=== PATIENT | male | born 1990 | race Two or more races ===

== ENCOUNTER 2019-01-14 18:57 | Inpatient (IN) | payer SELFPAY ==
[2019-01-14] MEDS ORDERED: HYDROMORPHONE HCL INJ/PF 2 MG/ML AMPULE ONE ×2 (19:00→19:09)
[2019-01-14] MEDS ORDERED: PROPOFOL 1,000 MG/100 ML INFUS..BTL IV ONE (19:08)
[2019-01-14] MEDS ORDERED: HYDROMORPHONE HCL INJ/PF 2 MG/ML AMPULE IV PRN (19:10)
[2019-01-14] MEDS ORDERED: HYDROMORPHONE HCL INJ/PF 2 MG/ML AMPULE IV ONE (19:10)
[2019-01-14] MEDS ORDERED: PROPOFOL 1,000 MG/100 ML INFUS..BTL IV PRN (19:11)
--- NOTE | 2019-01-14 19:23 | ER Document Report ---
ED General - General Stated Complaint: POSSIBLE OVERDOSE Time Seen by Provider: 01/14/19 19:10 Cannot obtain history due to: Intubated, Altered mental status Notes: Patient is a 28-year-old male who presents by EMS intubated and paralyzed after apparently having an overdose on opiate of some kind, slumping forward and having decreased respiratory effort. EMS was called, found patient in respirations, hypoxic into the 60s. 4 mg of IV Narcan was administered, patient became combative, agitated, not redirectable. Intubated for airway protection. No history can otherwise be obtained secondary to patient's clinical status at time of presentation. TRAVEL OUTSIDE OF THE [place] IN LAST 30 DAYS: No - Related Data Allergies/Adverse Reactions: No Known Allergies Allergy (Unverified 01/14/19 21:04) Past Medical History - General Information source: Emergency Med Personnel Cannot obtain history due to: Intubated - Social History Smoking Status: Unknown if Ever Smoked Drug Abuse: Other - Opiates Lives with: Family Family History: Reviewed & Not Pertinent Review of Systems - Review of Systems -: Yes ROS unobtainable due to patient's medical condition Physical Exam - Vital signs Vitals: Resp Pulse Ox 10 L 97 01/14/19 19:00 01/14/19 19:00 Interpretation: Hypertensive, Tachycardic Notes: PHYSICAL EXAMINATION: GENERAL: Intubated, GCS 3 T HEAD: Atraumatic, normocephalic. EYES: Pupils equal round and reactive to light, extraocular movements intact, sclera anicteric, conjunctiva are normal. ENT: nares patent, oropharynx clear without exudates. Dry mucous membranes. NECK: Normal range of motion, supple without lymphadenopathy LUNGS: Tachypnea, breathing over ventilator, crackles in the bilateral upper lobes. HEART: Regular tachycardia without murmurs ABDOMEN: Soft, normoactive bowel sounds. No guarding, no rebound. No masses appreciated. EXTREMITIES: no pitting or edema. No cyanosis. NEUROLOGICAL: GCS 3 T PSYCH: Intubated sedated SKIN: Warm, Dry, normal turgor, no rashes or lesions noted. Course - Re-evaluation Re-evalutation: 01/14/19 19:21 Documentation is delayed as I been at this patient's bedside continuously since his arrival into the emergency department. In summary this patient apparently had an overdose on opiate of some kind. Family witnessed him on his phone and then slumping over onto the ground. Thereafter EMS was contacted. They found the patient to have agonal respirations, heart rates into the 70s. They gave 4 mg of naloxone IV over the course of 5 minutes with dilation of the patient's pupils, development of agitation and combativeness. The patient was subsequently intubated using rocuronium and Versed. Patient was transported to the hospital and noted to be profoundly tachycardic and hypertensive. At time of arrival to the emergency department the patient is paralyzed but obviously not sedated. He was administered 3 mg of Dilaudid over the course of 10 minutes. A propofol bolus of 40 mg followed by infusion was initiated for him. Initial chest x-ray did reveal small interstitial pulmonary edema more dominant on the right versus left consistent with Narcan induced pulmonary edema. Patient was transitioned to a ventilator. PEEP was increased to 10 and FiO2 was gradually decreased to allow for appropriate oxygenation. IV fluid hydration continued. OG and Busch catheter placed. CT of the head and cervical spine ordered given fall at onset. Patient is in critical condition, will continue to reassess at regular intervals. My goal be to try to transition the patient off of ventilator assistance and extubate as soon as possible as I believe he likely did not require intubation in the field and likely had over reversal of opiates. 01/14/19 19:48 Patient is quite difficult to maintain adequate sedation. Continue to give boluses of hydromorphone 2 mg and boluses of propofol with escalating drip of propofol. The patient is spewing forth pulmonary edema from the ET tube. 20 mg of IV furosemide been initiated for his pulmonary edema. The patient was being prepped to go over the CT scan he was transitioned to a bag for ventilation initially with Peep valve. This did result in a brief period of oxygen desaturation into the upper 70s which resolved after a Peep valve was replaced indicating the patient likely does need a high level of positive pressure support to maintain his saturations appropriately likely secondary to underlying pulmonary edema. Will continue to reassess at regular intervals. 01/14/19 20:26 Patient is now finally appropriately sedated. We are weaning down propofol. He is currently saturating 95% with a PEEP of 1060% FiO2, heart rate in the 80s and blood pressure in the low 100s currently 103 out of 54. Some of the difficulty sedating the patient initially may have been due to on going Narcan within the patient's system reducing effectiveness of the hydromorphone administered to control the patient's pain. We will continue to wean down the propofol to gradually reduce patient's sedation. Unfortunately given the patient having pulmonary edema and clearly requiring positive pressure ventilation at this point secondary to pulmonary edema I do not believe he will be able to be extubated in the emergency department. Will contact hospitalist for admission to the ICU. 01/14/19 20:39 I discussed with the hospitalist visited the patient to the ICU. Continue to monitor closely until the patient exists the emergency department. Maintains appropriate sedation at this time continuing to wean down on propofol. - Vital Signs Vital signs: Temp Pulse Resp BP Pulse Ox 14 95/57 L 95 01/14/19 20:31 01/14/19 20:31 01/14/19 20:31 - Laboratory Result Diagrams: 01/14/19 19:11 01/14/19 19:00 Laboratory results interpreted by me: 01/14/19 01/14/19 01/14/19 19:00 19:11 19:20 WBC 18.5 H Absolute Neutrophils 13.6 H Potassium 3.3 L Glucose 255 H ALT 15 L Urine Protein 100 H Urine Glucose (UA) >=500 H Salicylates < 1.0 L Acetaminophen < 10 L - Diagnostic Test Radiology reviewed: Image reviewed, Reports reviewed Radiology results interpreted by me: 01/14/19 20:39 Chest x-ray: Bilateral upper pulmonary edema worse in the right versus the left. ET tube in appropriate position. CT of the head: No acute cranial bleed or mass - EKG Interpretation by Me Additional EKG results interpreted by me: 01/14/19 20:40 Sinus tachycardia, rate 155. No ST elevations or depressions, nonspecific T wave inversions or flattening in the lateral leads. QTC is 349. Critical Care Note - Critical Care Note Total time excluding time spent on procedures (mins): 45 Comments: Critical care time spent obtaining history from patient or surrogate, discussions with consultants, development of treatment plan with patient or surrogate, evaluation of patient's response to treatment, examination of patient, ordering and performing treatments and interventions, ordering and review of laboratory studies, re-evaluation of patient's condition, ordering and review of radiographic studies and review of old charts Discharge - Discharge Clinical Impression: Narcan induced pulmonary edema, Opiate withdrawal, Acute respiratory failure with hypoxia Pulmonary edema Qualifiers: Chronicity: acute Qualified Code(s): J81.0 - Acute pulmonary edema Opiate overdose Qualifiers: Encounter type: initial encounter Injury intent: undetermined intent Qualified Code(s): T40.604A - Poisoning by unspecified narcotics, undetermined, initial encounter Condition: Critical Disposition: ADMITTED INPATIENT Admitting Provider: Jeremy (Hospitalist) Unit Admitted: ICU
[2019-01-14 19:25] LABS: ABSOLUTE BASOPHILS # (AUTO) 0.1 10^3/uL (0.0-0.2); ABSOLUTE EOSINOPHILS # (AUTO) 0.1 10^3/uL (0.0-0.6); ABSOLUTE LYMPHOCYTES (AUTO) 3.9 10^3/uL (0.5-4.7); ABSOLUTE MONOCYTES (AUTO) 0.8 10^3/uL (0.1-1.4); ABSOLUTE NEUT (AUTO) 13.6 10^3/uL (1.7-8.2); BASOPHILS % (AUTO) 0.4 % (0-2); EOSINOPHILS % (AUTO) 0.6 % (0-6); HEMATOCRIT 43.9 % (37.9-51.0); HEMOGLOBIN 14.6 g/dL (13.5-17.0); LYMPHOCYTES % (AUTO) 21.2 % (13-45); MEAN CORPUSCULAR HEMOGLOBIN 30.6 pg (27.0-33.4); MEAN CORPUSCULAR HGB CONC 33.1 g/dL (32.0-36.0); MEAN CORPUSCULAR VOLUME 92 fl (80-97); MONOCYTES % (AUTO) 4.4 % (3-13); PLATELET COUNT 287 10^3/uL (150-450); RED BLOOD COUNT 4.75 10^6/uL (4.35-5.55); RED CELL DISTRIBUTION WIDTH 13.2 % (11.5-14.0); SEGMENTED NEUTROPHILS % (AUTO) 73.4 % (42-78); TOTAL CELLS COUNTED % (AUTO) 100 %; WHITE BLOOD COUNT 18.5 10^3/uL (4.0-10.5)
--- NOTE | 2019-01-14 19:37 | RADIOLOGY REPORT (SQ) ---
EXAM DESCRIPTION: CHEST SINGLE VIEW COMPLETED DATE/TIME: 01/14/2019 7:19 pm REASON FOR STUDY: post-intubation COMPARISON: None. EXAM PARAMETERS: NUMBER OF VIEWS: One view TECHNIQUE: Single supine frontal radiograph of the chest. RADIATION DOSE: N/A LIMITATIONS: None. FINDINGS: TEMPORARY SUPPORT DEVICES:ETT in expected location. The enteric tube has the tip at the d istal esophagus. LUNGS AND PLEURA: There are patchy airspace opacities at the bilateral upper lobes. No sizable pleur al effusion or pneumothorax on this supine view. MEDIASTINUM AND HILAR STRUCTURES: No masses. Contour normal. HEART AND VASCULAR STRUCTURES: The heart is mildly enlarged. No overt vascular congestion. BONES: No acute findings. IMPRESSION: 1. Mild cardiomegaly. Patchy airspace opacities at the bilateral upper lobes, may repre sent asymmetric pulmonary edema, pneumonia or hemorrhage. 2. Enteric tube with the tip at the distal esophagus, advancement by approximately 10 cm recommended . RECOMMENDATIONS: Advancement of the enteric tube. TECHNICAL DOCUMENTATION: JOB ID: [id number] 2010 [employer]- All Rights Reserved Reading location - IP/workstation name: [email or web address]
[2019-01-14] MEDS ORDERED: FUROSEMIDE INJ/PF 20 MG/2 ML SDV IV ONE (19:48)
[2019-01-14 19:51] LABS: ALANINE AMINOTRANSFERASE 15 U/L (21-72); ALBUMIN 4.1 g/dL (3.5-5.0); ALKALINE PHOSPHATASE 93 U/L (38-126); ANION GAP 15 (5-19); ASPARTATE AMINO TRANSFERASE 33 U/L (17-59); BILIRUBIN,DIRECT 0.2 mg/dL (0.0-0.4); BILIRUBIN,TOTAL 0.5 mg/dL (0.2-1.3); BLOOD UREA NITROGEN 10 mg/dL (7-20); CALCIUM 8.4 mg/dL (8.4-10.2); CARBON DIOXIDE 23 mmol/L (22-30); CHLORIDE 103 mmol/L (98-107); GLUCOSE 255 mg/dL (75-110); POTASSIUM 3.3 mmol/L (3.6-5.0); SODIUM 140.7 mmol/L (137-145); TOTAL PROTEIN 7.2 g/dL (6.3-8.2)
[2019-01-14 19:51] LABS: APPEARANCE,URINE SLIGHTLY-CLOUDY; BILIRUBIN,URINE NEGATIVE (NEGATIVE); COLOR,URINE YELLOW; GLUCOSE, URINE >=500 mg/dL (NEGATIVE); KETONES,URINE NEGATIVE (NEGATIVE); LEUKOCYTE ESTERASE,URINE NEGATIVE (NEGATIVE); NITRITE,URINE NEGATIVE (NEGATIVE); PROTEIN,URINE 100 mg/dL (NEGATIVE); URINE SPECIFIC GRAVITY 1.014; UROBILINOGEN,URINE NEGATIVE mg/dL (<2.0)
[2019-01-14 19:52] LABS: ACETAMINOPHEN < 10 ug/mL (10-30); SALICYLATE < 1.0 mg/dL (2.0-20.0)
[2019-01-14 20:01] LABS: URINE AMPHETAMINES SCREEN NEGATIVE; URINE BARBITURATES SCREEN NEGATIVE; URINE BENZODIAZEPINES SCREEN UNCONFIRMED POSITIVE; URINE COCAINE SCREEN NEGATIVE; URINE MARIJUANA (THC) SCREEN UNCONFIRMED POSITIVE; URINE METHADONE SCREEN NEGATIVE; URINE PHENCYCLIDINE SCREEN NEGATIVE
--- NOTE | 2019-01-14 20:27 | RADIOLOGY REPORT (SQ) ---
CT BRAIN AND CERVICAL SPINE HISTORY: Trauma. COMPARISON: None. TECHNIQUE: CT scan of the brain and cervical spine without IV contrast. This exam was performed according to our departmental dose-optimization program, which includes automated exposure control, adjustment of the mA and/or kV according to patient size and/or use of iterative reconstruction technique. FINDINGS: BRAIN: The ventricles, cisterns, and sulci are unremarkable. No focal white matter lesions are seen. No evidence of acute infarction, intracranial hemorrhage, extra-axial fluid collection, or midline shift. There is sinus disease involving the ethmoid and left maxillary sinus. No depressed skull fracture. CERVICAL SPINE: No acute cervical fracture or prevertebral soft tissue swelling. There is straightening of the normal cervical lordosis, which may be due to cervical collar, muscle spasm, or patient positioning. The facet joints and disc spaces are preserved. No advanced canal stenosis is identified. Partially visualized consolidation at lung apices. IMPRESSION: 1. No acute intracranial hemorrhage. 2. No acute fracture or subluxation of the cervical spine.
[2019-01-14] MEDS ORDERED: ACETAMINOPHEN 325 MG TABLET PO PRN (20:40)
[2019-01-14] MEDS ORDERED: IPRATROPIUM/ALBUTEROL 0.5-2.5 MG/3 ML AMPUL NEB PRN (20:40)
[2019-01-14] MEDS ORDERED: NORMAL SALINE 1000 ML 1,000 ML IV ONE (20:42)
[2019-01-14] MEDS: POTASSI CL 20 MEQ/50 ML RIDER 20 MEQ/50 ML RTUPB IV SCH (21:26)
[2019-01-14] MEDS: FENTANYL CITRATE INJ/PF 100 MCG/2 ML AMPUL IV PRN (22:09)
[2019-01-14] MEDS: PROPOFOL 1,000 MG/100 ML INFUS..BTL IV PRN (22:11)
[2019-01-14 22:32] LABS: ARTERIAL BLOOD BASE EXCESS -3.6 mmol/L; ARTERIAL BLOOD H2CO3 1.36 mmol/L (1.05-1.35); ARTERIAL BLOOD HCO3 22.7 mmol/L (20-24); ARTERIAL BLOOD O2 SATURATION 92.8 % (94-98); ARTERIAL BLOOD PCO2 45.1 mmHg (35-45); ARTERIAL BLOOD PH 7.32 (7.35-7.45); ARTERIAL BLOOD PO2 70.5 mmHg (80-100)
[2019-01-14 22:33] LABS: ARTERIAL BLOOD FIO2 40%
--- NOTE | 2019-01-14 23:23 | EKG REPORT ---
SEVERITY:- ABNORMAL ECG - ECTOPIC ATRIAL TACHYCARDIA PROBABLE LEFT ATRIAL ABNORMALITY NONSPECIFIC INTRAVENTRICULAR CONDUCTION DELAY INFERIOR Q WAVES, PROBABLY NORMAL VARIATION LATERAL Q WAVES, PROBABLY NORMAL VARIATION ST DEPRESSION, CONSIDER ISCHEMIA, INF LEADS : Confirmed by: Francisca Turner MD 14-Jan-2019 23:22:39
--- NOTE | 2019-01-14 23:27 | RADIOLOGY REPORT (SQ) ---
EXAM DESCRIPTION: XR CHEST 1 VIEW COMPLETED DATE/TME: 01/14/2019 00:00 CLINICAL HISTORY: 28 years, Male, decreased o2 sat COMPARISON: None NUMBER OF VIEWS: One TECHNIQUE: Single view, AP portable chest was obtained. LIMITATIONS: None. FINDINGS: Unremarkable cardiac and mediastinal silhouette. Heart size is top normal. Diffuse airspace opacification is identified present in the bilateral upper lobe and perihilar distribution raising the possibility of edema, ARDS and multifocal infectious process. No pneumothorax or large pleural effusions. Trace pleural effusions cannot be excluded. Endotracheal tube terminates approximately 4 cm above the level of the bryn. Enteric tube terminates at the level of the gastroesophageal junction. The visualized bones are within normal limits. IMPRESSION: 1. Diffuse airspace opacification is identified present in the bilateral upper lobe and perihilar distribution raising the possibility of edema, ARDS and multifocal infectious process. 2. Enteric tube terminates at the level of the gastroesophageal junction. Repositioning is recommended. copyright 2010 [employer]- All Rights Reserved
[2019-01-14] MEDS ORDERED: PHARMACY COMMUNICATION ORDER MC NR (23:45)
[2019-01-15] MEDS: IPRATROPIUM/ALBUTEROL 0.5-2.5 MG/3 ML AMPUL NEB SCH ×4 (00:16→23:54)
--- NOTE | 2019-01-15 00:37 | RADIOLOGY REPORT (SQ) ---
CLINICAL HISTORY: Check Placement of NG Tube COMPARISON: None. TECHNIQUE: XR ABDOMEN 1 VIEW (KUB) 01/14/2019 11:49 PM CDT FINDINGS: Bowel gas pattern is nonspecific. There are no abnormal radiopaque foreign bodies or abnormal calcifications. Osseous structures are grossly unremarkable. NG tube tip is in the stomach. IMPRESSION: NG tube tip in the stomach.
--- NOTE | 2019-01-15 00:38 | RADIOLOGY REPORT (SQ) ---
EXAM DESCRIPTION: XR CHEST 1 VIEW COMPLETED DATE/TME: 01/14/2019 23:48 CLINICAL HISTORY: 28 years, Male, ET position, ARDS COMPARISON: X-ray chest 01/14/2019 NUMBER OF VIEWS: TECHNIQUE: LIMITATIONS: None. FINDINGS: The tip of the endotracheal tube is in satisfactory position, just above the level of the clavicles. The right upper lobe infiltrate appears somewhat worse, as compared with the prior study. The left upper lobe infiltrate appears somewhat better, as compared with the prior study. There is hazy opacity projecting over the right lung base, possibly a pleural effusion. The nasogastric tube has been advanced at least into the stomach. The tip of the tube was not included on this chest x-ray. IMPRESSION: The ET tube is in satisfactory position. The right upper lobe infiltrate appears worse and the left upper infiltrate appears somewhat better, as compared with the prior chest x-ray. Possible right pleural effusion. copyright 2010 [employer]- All Rights Reserved
[2019-01-15] MEDS: PANTOPRAZOLE SODIUM 40 MG VIAL IV SCH ×3 (00:56→21:09)
[2019-01-15] MEDS: PROPOFOL 1,000 MG/100 ML INFUS..BTL IV PRN ×7 (00:56→21:58)
[2019-01-15] MEDS: HEPARIN SOD (PORCINE) 5,000 UNIT/ML 1 ML SYRINGE SUBCUT SCH ×4 (00:56→21:10)
[2019-01-15] MEDS: ACETAMINOPHEN 325 MG TABLET NG PRN ×2 (00:57→20:26)
[2019-01-15] MEDS: POTASSI CL 20 MEQ/50 ML RIDER 20 MEQ/50 ML RTUPB IV SCH (00:58)
[2019-01-15 01:10] LABS: ARTERIAL BLOOD H2CO3 1.47 mmol/L (1.05-1.35); ARTERIAL BLOOD HCO3 25.4 mmol/L (20-24); ARTERIAL BLOOD O2 SATURATION 99.8 % (94-98); ARTERIAL BLOOD PCO2 48.7 mmHg (35-45); ARTERIAL BLOOD PH 7.34 (7.35-7.45); ARTERIAL BLOOD TOTAL CO2 26.9 mmol/L (23-27)
[2019-01-15 01:11] LABS: ARTERIAL BLOOD FIO2 100%
[2019-01-15 03:40] LABS: ABSOLUTE LYMPHOCYTES (AUTO) 1.4 10^3/uL (0.5-4.7); ABSOLUTE MONOCYTES (AUTO) 0.7 10^3/uL (0.1-1.4); ABSOLUTE NEUT (AUTO) 10.3 10^3/uL (1.7-8.2); BASOPHILS % (AUTO) 0.3 % (0-2); EOSINOPHILS % (AUTO) 0.1 % (0-6); HEMOGLOBIN 13.4 g/dL (13.5-17.0); LYMPHOCYTES % (AUTO) 11.2 % (13-45); MEAN CORPUSCULAR HEMOGLOBIN 30.3 pg (27.0-33.4); MEAN CORPUSCULAR HGB CONC 33.4 g/dL (32.0-36.0); MEAN CORPUSCULAR VOLUME 91 fl (80-97); MONOCYTES % (AUTO) 5.4 % (3-13); PLATELET COUNT 222 10^3/uL (150-450); RED BLOOD COUNT 4.41 10^6/uL (4.35-5.55); RED CELL DISTRIBUTION WIDTH 13.2 % (11.5-14.0); TOTAL CELLS COUNTED % (AUTO) 100 %; WHITE BLOOD COUNT 12.4 10^3/uL (4.0-10.5)
[2019-01-15] MEDS: NORMAL SALINE 1000 ML 1,000 ML IV PRN ×2 (04:00→08:33)
[2019-01-15 04:01] LABS: ANION GAP 8 (5-19); BLOOD UREA NITROGEN 10 mg/dL (7-20); CALCIUM 8.2 mg/dL (8.4-10.2); CARBON DIOXIDE 25 mmol/L (22-30); CHLORIDE 107 mmol/L (98-107); GLUCOSE 87 mg/dL (75-110); SODIUM 140.2 mmol/L (137-145)
--- NOTE | 2019-01-15 05:18 | PDOC H&P ---
History of Present Illness Admission Date/PCP: 01/14/19 20:59 Patient complains of: Altered mental status History of Present Illness: NESHA BONILLA is a 28 year old male whose history is obtained by the record as he is intubated and sedated. Patient presents via EMS intubated and paralyzed after apparently having an overdose on opiates of some kind. Found slumping forward with agonal respirations and hypoxia in the 60s. He received 4 mg of IV Narcan becoming combative, agitated requiring intubation for airway protection. In the emergency room he is found to have leukocytosis, hypokalemia, pulmonary edema by imaging, hypoxic and hypercapnic respiratory failure. He is referred to the hospitalist for admission. Urine drug screen positive for benzod iazepine, opiates and cannabis. Past Medical History Medical History: None Past Surgical History Past Surgical History: Reports: None Social History Information Source: Emergency Med Personnel, [facility] Records Lives with: Family Smoking Status: Unknown if Ever Smoked Drugs: Marijuana - Advance Directive Resuscitation Status: Full Code Family History Family History: Other - Unobtainable Parental Family History Reviewed: No - Unobtainable Children Family History Reviewed: No - Unobtainable Sibling(s) Family History Reviewed.: No - Unobtainable Medication/Allergy Allergies/Adverse Reactions: No Known Allergies Allergy (Unverified 01/14/19 21:04) Review of Systems ROS unobtainable: Due to endotracheal tube - Intubated and sedated, Due to mental status - Intubated and sedated Physical Exam Vital Signs: Temp Pulse Resp BP Pulse Ox 88 16 120/64 100 01/15/19 00:00 01/15/19 00:00 01/14/19 22:32 01/15/19 00:00 Intake & Output 01/13/19 01/14/19 01/15/19 11:59 11:59 11:59 Intake Total 1253 Output Total 610 Balance 643 Weight 76 kg General appearance: PRESENT: severe distress, well-developed, well-nourished. ABSENT: cooperative Head exam: PRESENT: atraumatic, normocephalic Eye exam: PRESENT: conjunctiva pink, EOMI, PERRLA. ABSENT: scleral icterus Ear exam: PRESENT: normal external ear exam Mouth exam: PRESENT: moist, tongue midline Neck exam: ABSENT: carotid bruit, JVD, lymphadenopathy, thyromegaly Respiratory exam: PRESENT: crackles, decreased breath sounds, prolonged expiratory phas, symmetrical, wheezes. ABSENT: rales, rhonchi Cardiovascular exam: PRESENT: tachycardia. ABSENT: diastolic murmur, rubs, systolic murmur Pulses: PRESENT: normal dorsalis pedis pul Vascular exam: PRESENT: normal capillary refill GI/Abdominal exam: PRESENT: normal bowel sounds, soft. ABSENT: distended, guarding, mass, organolmegaly, rebound, tenderness Rectal exam: PRESENT: deferred Extremities exam: PRESENT: full ROM. ABSENT: calf tenderness, clubbing, pedal edema Neurological exam: PRESENT: altered Skin exam: PRESENT: dry, intact, warm. ABSENT: cyanosis, rash Results Laboratory Results: 01/15/19 03:25 01/15/19 03:25 01/14/19 01/14/19 01/14/19 19:00 19:11 19:20 WBC 18.5 H RBC 4.75 Hgb 14.6 Hct 43.9 MCV 92 MCH 30.6 MCHC 33.1 RDW 13.2 Plt Count 287 Seg Neutrophils % 73.4 Lymphocytes % 21.2 Monocytes % 4.4 Eosinophils % 0.6 Basophils % 0.4 Absolute Neutrophils 13.6 H Absolute Lymphocytes 3.9 Absolute Monocytes 0.8 Absolute Eosinophils 0.1 Absolute Basophils 0.1 Carbonic Acid HCO3/H2CO3 Ratio ABG pH ABG pCO2 ABG pO2 ABG HCO3 ABG O2 Saturation ABG Base Excess FiO2 Sodium 140.7 Potassium 3.3 L Chloride 103 Carbon Dioxide 23 Anion Gap 15 BUN 10 Creatinine 0.82 Est GFR ( Amer) > 60 Est GFR (Non-Af Amer) > 60 Glucose 255 H Calcium 8.4 Magnesium Total Bilirubin 0.5 AST 33 ALT 15 L Alkaline Phosphatase 93 Total Protein 7.2 Albumin 4.1 Urine Color YELLOW Urine Appearance SLIGHTLY-CLOUDY Urine pH 5.0 Ur Specific [place] 1.014 Urine Protein 100 H Urine Glucose (UA) >=500 H Urine Ketones NEGATIVE Urine Blood NEGATIVE Urine Nitrite NEGATIVE Ur Leukocyte Esterase NEGATIVE Urine WBC (Auto) 2 Urine RBC (Auto) 1 01/14/19 01/14/19 01/15/19 19:20 22:20 00:45 WBC RBC Hgb Hct MCV MCH MCHC RDW Plt Count Seg Neutrophils % Lymphocytes % Monocytes % Eosinophils % Basophils % Absolute Neutrophils Absolute Lymphocytes Absolute Monocytes Absolute Eosinophils Absolute Basophils Carbonic Acid 1.36 H 1.47 H HCO3/H2CO3 Ratio 16:1 17:1 ABG pH 7.32 L 7.34 L ABG pCO2 45.1 H 48.7 H ABG pO2 70.5 L 441.0 H ABG HCO3 22.7 25.4 H ABG O2 Saturation 92.8 L 99.8 H ABG Base Excess -3.6 -1.0 FiO2 40% 100% Sodium Potassium Chloride Carbon Dioxide Anion Gap BUN Creatinine Est GFR ( Amer) Est GFR (Non-Af Amer) Glucose Calcium Magnesium 1.9 Total Bilirubin AST ALT Alkaline Phosphatase Total Protein Albumin Urine Color Urine Appearance Urine pH Ur Specific [place] Urine Protein Urine Glucose (UA) Urine Ketones Urine Blood Urine Nitrite Ur Leukocyte Esterase Urine WBC (Auto) Urine RBC (Auto) 01/15/19 01/15/19 03:25 03:25 WBC 12.4 H RBC 4.41 Hgb 13.4 L Hct 40.0 MCV 91 MCH 30.3 MCHC 33.4 RDW 13.2 Plt Count 222 Seg Neutrophils % 83.0 H Lymphocytes % 11.2 L Monocytes % 5.4 Eosinophils % 0.1 Basophils % 0.3 Absolute Neutrophils 10.3 H Absolute Lymphocytes 1.4 Absolute Monocytes 0.7 Absolute Eosinophils 0.0 Absolute Basophils 0.0 Carbonic Acid HCO3/H2CO3 Ratio ABG pH ABG pCO2 ABG pO2 ABG HCO3 ABG O2 Saturation ABG Base Excess FiO2 Sodium 140.2 Potassium 4.0 Chloride 107 Carbon Dioxide 25 Anion Gap 8 BUN 10 Creatinine 0.77 Est GFR ( Amer) > 60 Est GFR (Non-Af Amer) > 60 Glucose 87 Calcium 8.2 L Magnesium Total Bilirubin AST ALT Alkaline Phosphatase Total Protein Albumin Urine Color Urine Appearance Urine pH Ur Specific [place] Urine Protein Urine Glucose (UA) Urine Ketones Urine Blood Urine Nitrite Ur Leukocyte Esterase Urine WBC (Auto) Urine RBC (Auto) Impressions: Cervical Spine CT 01/14/19 19:11 IMPRESSION: 1. No acute intracranial hemorrhage. 2. No acute fracture or subluxation of the cervical spine. Head CT 01/14/19 19:11 IMPRESSION: 1. No acute intracranial hemorrhage. 2. No acute fracture or subluxation of the cervical spine. Chest X-Ray 01/14/19 23:48 IMPRESSION: The ET tube is in satisfactory position. The right upper lobe infiltrate appears worse and the left upper infiltrate appears somewhat better, as compared with the prior chest x-ray. Possible right pleural effusion. copyright 2011 [employer]- All Rights Reserved KUB X-Ray 01/14/19 23:49 IMPRESSION: NG tube tip in the stomach. Assessment and Plan - Diagnosis (1) Acute respiratory failure with hypoxia Is this a current diagnosis for this admission?: Yes Plan: Most likely secondary to opiate overdose. Continue ventilator support follow-up chest x-ray and ABG. (2) Pulmonary edema Qualifiers: Chronicity: acute Qualified Code(s): J81.0 - Acute pulmonary edema Is this a current diagnosis for this admission?: Yes Plan: Likely secondary to opiate reversal. Continue ventilator support patient received 1 dose of Lasix, follow-up imaging (3) Opiate overdose Qualifiers: Encounter type: initial encounter Injury intent: undetermined intent Qualified Code(s): T40.604A - Poisoning by unspecified narcotics, undetermined, initial encounter Is this a current diagnosis for this admission?: Yes Plan: Unclear route, no murmur. Mental health consult when appropriate (4) Fever Is this a current diagnosis for this admission?: Yes Plan: No history suggesting aspiration, follow-up blood and urine culture - Time Time Spent with patient: 35 or more minutes
[2019-01-15 06:36] LABS: ARTERIAL BLOOD BASE EXCESS -0.1 mmol/L; ARTERIAL BLOOD FIO2 30%; ARTERIAL BLOOD H2CO3 1.18 mmol/L (1.05-1.35); ARTERIAL BLOOD HCO3 24.3 mmol/L (20-24); ARTERIAL BLOOD O2 SATURATION 97.6 % (94-98); ARTERIAL BLOOD PCO2 39.1 mmHg (35-45); ARTERIAL BLOOD PH 7.41 (7.35-7.45); ARTERIAL BLOOD PO2 99.9 mmHg (80-100); ARTERIAL BLOOD TOTAL CO2 25.5 mmol/L (23-27)
[2019-01-15] MEDS: FENTANYL CITRATE INJ/PF 100 MCG/2 ML AMPUL IV PRN ×3 (08:14→20:15)
--- NOTE | 2019-01-15 09:41 | EKG REPORT ---
SEVERITY:- NORMAL ECG - SINUS RHYTHM ST ELEV, PROBABLE NORMAL EARLY REPOL PATTERN : Confirmed by: Francisca Turner MD 15-Jan-2019 09:40:34
--- NOTE | 2019-01-15 12:18 | PDOC PROGRESS REPORT ---
Subjective Progress Note for:: 01/15/19 Subjective:: Patient is vented and sedated. Staff reports that when sedation is lightened patient gets quite agitated. Reason For Visit: AMS,PULMONARY EDEMA,OPIATE OD Physical Exam Vital Signs: Temp Pulse Resp BP Pulse Ox 98.8 F 66 16 115/62 100 01/15/19 10:00 01/15/19 10:00 01/15/19 10:00 01/15/19 10:00 01/15/19 11:41 Intake & Output 01/14/19 01/15/19 01/16/19 06:59 06:59 06:59 Intake Total 1253 1092 Output Total 970 680 Balance 283 412 Weight 76.7 kg General appearance: PRESENT: no acute distress, well-developed, other - Vented and sedated. ABSENT: obese Head exam: PRESENT: atraumatic, normocephalic Eye exam: PRESENT: conjunctiva pink. ABSENT: scleral icterus Mouth exam: PRESENT: other - Endotracheal tube in place Neck exam: ABSENT: carotid bruit, JVD, lymphadenopathy Respiratory exam: PRESENT: clear to auscultation wm, symmetrical, unlabored - Breathing at set rate. ABSENT: accessory muscle use, rales, rhonchi, tachypnea, wheezes Cardiovascular exam: PRESENT: RRR, +S1, +S2. ABSENT: diastolic murmur, systolic murmur GI/Abdominal exam: PRESENT: normal bowel sounds, soft. ABSENT: distended, tenderness Rectal exam: PRESENT: deferred Gentrourinary exam: PRESENT: indwelling catheter Extremities exam: ABSENT: joint swelling, pedal edema Musculoskeletal exam: PRESENT: normal inspection Neurological exam: PRESENT: other - Sedated Psychiatric exam: PRESENT: other - Sedated Focused psych exam: PRESENT: other - Sedated Results Laboratory Results: 01/15/19 03:25 01/15/19 03:25 01/14/19 01/14/19 01/14/19 19:00 19:11 19:20 WBC 18.5 H RBC 4.75 Hgb 14.6 Hct 43.9 MCV 92 MCH 30.6 MCHC 33.1 RDW 13.2 Plt Count 287 Seg Neutrophils % 73.4 Lymphocytes % 21.2 Monocytes % 4.4 Eosinophils % 0.6 Basophils % 0.4 Absolute Neutrophils 13.6 H Absolute Lymphocytes 3.9 Absolute Monocytes 0.8 Absolute Eosinophils 0.1 Absolute Basophils 0.1 Carbonic Acid HCO3/H2CO3 Ratio ABG pH ABG pCO2 ABG pO2 ABG HCO3 ABG O2 Saturation ABG Base Excess FiO2 Sodium 140.7 Potassium 3.3 L Chloride 103 Carbon Dioxide 23 Anion Gap 15 BUN 10 Creatinine 0.82 Est GFR ( Amer) > 60 Est GFR (Non-Af Amer) > 60 Glucose 255 H Calcium 8.4 Magnesium Total Bilirubin 0.5 AST 33 ALT 15 L Alkaline Phosphatase 93 Total Protein 7.2 Albumin 4.1 Urine Color YELLOW Urine Appearance SLIGHTLY-CLOUDY Urine pH 5.0 Ur Specific [place] 1.014 Urine Protein 100 H Urine Glucose (UA) >=500 H Urine Ketones NEGATIVE Urine Blood NEGATIVE Urine Nitrite NEGATIVE Ur Leukocyte Esterase NEGATIVE Urine WBC (Auto) 2 Urine RBC (Auto) 1 01/14/19 01/14/19 01/15/19 19:20 22:20 00:45 WBC RBC Hgb Hct MCV MCH MCHC RDW Plt Count Seg Neutrophils % Lymphocytes % Monocytes % Eosinophils % Basophils % Absolute Neutrophils Absolute Lymphocytes Absolute Monocytes Absolute Eosinophils Absolute Basophils Carbonic Acid 1.36 H 1.47 H HCO3/H2CO3 Ratio 16:1 17:1 ABG pH 7.32 L 7.34 L ABG pCO2 45.1 H 48.7 H ABG pO2 70.5 L 441.0 H ABG HCO3 22.7 25.4 H ABG O2 Saturation 92.8 L 99.8 H ABG Base Excess -3.6 -1.0 FiO2 40% 100% Sodium Potassium Chloride Carbon Dioxide Anion Gap BUN Creatinine Est GFR ( Amer) Est GFR (Non-Af Amer) Glucose Calcium Magnesium 1.9 Total Bilirubin AST ALT Alkaline Phosphatase Total Protein Albumin Urine Color Urine Appearance Urine pH Ur Specific [place] Urine Protein Urine Glucose (UA) Urine Ketones Urine Blood Urine Nitrite Ur Leukocyte Esterase Urine WBC (Auto) Urine RBC (Auto) 01/15/19 01/15/19 01/15/19 03:25 03:25 06:30 WBC 12.4 H RBC 4.41 Hgb 13.4 L Hct 40.0 MCV 91 MCH 30.3 MCHC 33.4 RDW 13.2 Plt Count 222 Seg Neutrophils % 83.0 H Lymphocytes % 11.2 L Monocytes % 5.4 Eosinophils % 0.1 Basophils % 0.3 Absolute Neutrophils 10.3 H Absolute Lymphocytes 1.4 Absolute Monocytes 0.7 Absolute Eosinophils 0.0 Absolute Basophils 0.0 Carbonic Acid 1.18 HCO3/H2CO3 Ratio 20:1 ABG pH 7.41 ABG pCO2 39.1 ABG pO2 99.9 ABG HCO3 24.3 H ABG O2 Saturation 97.6 ABG Base Excess -0.1 FiO2 30% Sodium 140.2 Potassium 4.0 Chloride 107 Carbon Dioxide 25 Anion Gap 8 BUN 10 Creatinine 0.77 Est GFR ( Amer) > 60 Est GFR (Non-Af Amer) > 60 Glucose 87 Calcium 8.2 L Magnesium Total Bilirubin AST ALT Alkaline Phosphatase Total Protein Albumin Urine Color Urine Appearance Urine pH Ur Specific [place] Urine Protein Urine Glucose (UA) Urine Ketones Urine Blood Urine Nitrite Ur Leukocyte Esterase Urine WBC (Auto) Urine RBC (Auto) Impressions: Cervical Spine CT 01/14/19 19:11 IMPRESSION: 1. No acute intracranial hemorrhage. 2. No acute fracture or subluxation of the cervical spine. Head CT 01/14/19 19:11 IMPRESSION: 1. No acute intracranial hemorrhage. 2. No acute fracture or subluxation of the cervical spine. Chest X-Ray 01/14/19 23:48 IMPRESSION: The ET tube is in satisfactory position. The right upper lobe infiltrate appears worse and the left upper infiltrate appears somewhat better, as compared with the prior chest x-ray. Possible right pleural effusion. copyright 2010 [employer]- All Rights Reserved KUB X-Ray 01/14/19 23:49 IMPRESSION: NG tube tip in the stomach. Assessment and Plan - Diagnosis (1) Acute respiratory failure with hypoxia Is this a current diagnosis for this admission?: Yes Plan: Most likely secondary to opiate overdose. Continue ventilator support follow-up chest x-ray and ABG. 01/15/2019-currently sedated. Has a low threshold for agitation. X-ray reviewed and large right upper lobe infiltrate. White blood cell count is improved but still elevated. Urine culture and sputum culture pending. I will start a ntibiotic therapy for possible aspiration as the patient was found down. Repeat chest x-ray tomorrow as well as repeat labs. (2) Fever Is this a current diagnosis for this admission?: Yes Plan: No history suggesting aspiration, follow-up blood and urine culture 01/15/2019-urine and sputum cultures pending. Blood cultures ordered. Will initiate Unasyn for potential aspiration pneumonia in otherwise healthy patient with intact immune system. (3) Opiate overdose Qualifiers: Encounter type: initial encounter Injury intent: undetermined intent Qualified Code(s): T40.604A - Poisoning by unspecified narcotics, undetermined, initial encounter Is this a current diagnosis for this admission?: Yes Plan: Unclear route, no murmur. Mental health consult when appropriate 01/15/2019-the patient received Narcan in the emergency department. We will continue to monitor for withdrawal. Currently sedated. (4) Pulmonary edema Qualifiers: Chronicity: acute Qualified Code(s): J81.0 - Acute pulmonary edema Is this a current diagnosis for this admission?: Yes Plan: Likely secondary to opiate reversal. Continue ventilator support patient received 1 dose of Lasix, follow-up imaging 01/15/2019-as noted above. Will monitor intake and output. I will decrease the IV fluids to maintenance levels. (5) Pneumonia Qualifiers: Pneumonia type: aspiration pneumonia Laterality: left Is this a current diagnosis for this admission?: Yes Plan: 01/15/2019-patient with right upper lobe infiltrate. Slightly worse. White blood cell count is improved however the patient was found down is at high risk of aspiration. Will start antibiotic therapy and monitor closely. Repeat labs and chest x-ray tomorrow. - Time Time Spent with patient: 25-34 minutes Anticipated discharge: Home
[2019-01-15] MEDS: AMPICILLIN SODIUM/SULBACTAM NA 3 GM in NORMAL SALINE 100 ML IV SCH (17:44)
[2019-01-15] MEDS ORDERED: AMPICILLIN SODIUM/SULBACTAM NA 1.5 GM in NORMAL SALINE 50 ML IV SCH (18:00)
[2019-01-16] MEDS: LORAZEPAM INJ 2 MG/1 ML VIAL IV PRN ×5 (01:14→17:54)
[2019-01-16] MEDS: AMPICILLIN SODIUM/SULBACTAM NA 3 GM in NORMAL SALINE 100 ML IV SCH ×2 (01:14→05:21)
[2019-01-16] MEDS: PROPOFOL 1,000 MG/100 ML INFUS..BTL IV PRN ×7 (01:16→22:52)
[2019-01-16] MEDS: FENTANYL CITRATE INJ/PF 100 MCG/2 ML AMPUL IV PRN ×6 (01:41→23:07)
[2019-01-16] MEDS: ACETAMINOPHEN 325 MG TABLET NG PRN ×3 (02:12→10:34)
[2019-01-16] MEDS: HEPARIN SOD (PORCINE) 5,000 UNIT/ML 1 ML SYRINGE SUBCUT SCH ×3 (05:19→21:31)
[2019-01-16 05:39] LABS: ABSOLUTE EOSINOPHILS # (AUTO) 0.1 10^3/uL (0.0-0.6); ABSOLUTE LYMPHOCYTES (AUTO) 1.7 10^3/uL (0.5-4.7); ABSOLUTE MONOCYTES (AUTO) 0.8 10^3/uL (0.1-1.4); BASOPHILS % (AUTO) 0.3 % (0-2); EOSINOPHILS % (AUTO) 1.4 % (0-6); HEMATOCRIT 40.8 % (37.9-51.0); HEMOGLOBIN 13.7 g/dL (13.5-17.0); LYMPHOCYTES % (AUTO) 16.2 % (13-45); MEAN CORPUSCULAR HEMOGLOBIN 31.1 pg (27.0-33.4); MEAN CORPUSCULAR HGB CONC 33.5 g/dL (32.0-36.0); MEAN CORPUSCULAR VOLUME 93 fl (80-97); MONOCYTES % (AUTO) 7.7 % (3-13); PLATELET COUNT 197 10^3/uL (150-450); RED BLOOD COUNT 4.39 10^6/uL (4.35-5.55); RED CELL DISTRIBUTION WIDTH 13.8 % (11.5-14.0); SEGMENTED NEUTROPHILS % (AUTO) 74.4 % (42-78); TOTAL CELLS COUNTED % (AUTO) 100 %; WHITE BLOOD COUNT 10.8 10^3/uL (4.0-10.5)
[2019-01-16 05:53] LABS: ARTERIAL BLOOD BASE EXCESS 0.5 mmol/L; ARTERIAL BLOOD H2CO3 1.23 mmol/L (1.05-1.35); ARTERIAL BLOOD HCO3 25.2 mmol/L (20-24); ARTERIAL BLOOD O2 SATURATION 95.8 % (94-98); ARTERIAL BLOOD PCO2 40.9 mmHg (35-45); ARTERIAL BLOOD PH 7.41 (7.35-7.45); ARTERIAL BLOOD PO2 79.1 mmHg (80-100); ARTERIAL BLOOD TOTAL CO2 26.5 mmol/L (23-27)
[2019-01-16 05:58] LABS: ANION GAP 9 (5-19); BLOOD UREA NITROGEN 8 mg/dL (7-20); CALCIUM 8.7 mg/dL (8.4-10.2); CARBON DIOXIDE 26 mmol/L (22-30); CHLORIDE 108 mmol/L (98-107); GLUCOSE 74 mg/dL (75-110); POTASSIUM 4.2 mmol/L (3.6-5.0); SODIUM 142.6 mmol/L (137-145)
[2019-01-16 06:10] LABS: ARTERIAL BLOOD FIO2 30%
--- NOTE | 2019-01-16 07:10 | RADIOLOGY REPORT (SQ) ---
EXAM DESCRIPTION: XR CHEST 1 VIEW COMPLETED DATE/TME: 01/16/2019 06:00 CLINICAL HISTORY: 28 years Male, Follow-up infiltrate. Respiratory failure. COMPARISON: One day prior. NUMBER OF VIEWS/TECHNIQUE: 1/AP FINDINGS: Clear appearance of the lungs of adequate volume, and normal cardiac silhouette. Interval improvement. Adequate appearing endotracheal tube. Adequate appearing enteric tube partially obscured. No pneumothorax. Stable bony thorax. IMPRESSION: Clear lungs of adequate volume, and normal cardiac silhouette. Interval improvement.
[2019-01-16] MEDS: IPRATROPIUM/ALBUTEROL 0.5-2.5 MG/3 ML AMPUL NEB SCH ×2 (07:48→16:17)
[2019-01-16] MEDS: PANTOPRAZOLE SODIUM 40 MG VIAL IV SCH ×2 (09:14→21:31)
[2019-01-16] MEDS: NORMAL SALINE 1000 ML 1,000 ML IV PRN ×2 (10:34→22:53)
--- NOTE | 2019-01-16 12:20 | PDOC CONSULTATION ---
Consultation Consult Date: 01/16/19 Attending physician:: JONATHAN ARTHUR Provider Consulted: VAMSHI CHANG Consult reason:: resp failure History of Present Illness Admission Date/PCP: 01/14/19 20:59 History of Present Illness: NESHA BONILLA is a 28 year old male intubated in the field by EMS because SaO2 60s intubated and sedated his upon arrival he was highly combative stimulated ABG and radiographic clear at this time. He had multiple positives on his urine drug screen Past Surgical History Past Surgical History: Reports: None Social History Lives with: Family Smoking Status: Unknown if Ever Smoked Frequency of Alcohol Use: Occasional Hx Recreational Drug Use: Yes Drugs: Marijuana Hx Prescription Drug Abuse: Yes - Advance Directive Resuscitation Status: Full Code Family History Family History: Other - Unobtainable Parental Family History Reviewed: No Children Family History Reviewed: No Sibling(s) Family History Reviewed.: No Medication/Allergy Home Medications: No Home Medications 01/15/19 Allergies/Adverse Reactions: No Known Allergies Allergy (Unverified 01/14/19 21:04) Review of Systems ROS unobtainable: Due to endotracheal tube, Due to mental status Physical Exam Vital Signs: Temp Pulse Resp BP Pulse Ox 100.6 F H 107 H 19 136/77 H 100 01/16/19 08:00 01/16/19 08:00 01/16/19 08:00 01/16/19 08:00 01/16/19 08:00 Intake & Output 01/15/19 01/16/19 01/17/19 06:59 06:59 06:59 Intake Total 1303 2886 183 Output Total 970 3490 150 Balance 333 -604 33 Weight 76.7 kg 76.4 kg General appearance: PRESENT: no acute distress, disheveled, well-developed, well-nourished. ABSENT: cooperative Head exam: PRESENT: atraumatic, normocephalic Eye exam: PRESENT: conjunctiva pale. ABSENT: nystagmus, periorbital swelling, scleral icterus Mouth exam: PRESENT: dry mucosa, neck supple, tongue midline, other - ET tube in place Neck exam: ABSENT: carotid bruit, full ROM, JVD, lymphadenopathy, meningismus, tenderness, thyromegaly, tracheal deviation, tracheostomy, other Respiratory exam: PRESENT: decreased breath sounds, prolonged expiratory phas, rales, rhonchi, symmetrical, unlabored. ABSENT: retraction, stridor Cardiovascular exam: PRESENT: RRR, +S1, +S2, tachycardia Pulses: PRESENT: normal radial pulses GI/Abdominal exam: PRESENT: soft Gentrourinary exam: PRESENT: indwelling catheter Extremities exam: ABSENT: calf tenderness, clubbing, full ROM, joint swelling, pedal edema Musculoskeletal exam: ABSENT: ambulatory, deformity, dislocation Neurological exam: ABSENT: awake Skin exam: PRESENT: dry, warm Results Laboratory Results: 01/16/19 05:28 01/16/19 05:28 01/15/19 01/16/19 01/16/19 15:20 05:28 05:28 WBC 10.8 H RBC 4.39 Hgb 13.7 Hct 40.8 MCV 93 MCH 31.1 MCHC 33.5 RDW 13.8 Plt Count 197 Seg Neutrophils % 74.4 Lymphocytes % 16.2 Monocytes % 7.7 Eosinophils % 1.4 Basophils % 0.3 Absolute Neutrophils 8.0 Absolute Lymphocytes 1.7 Absolute Monocytes 0.8 Absolute Eosinophils 0.1 Absolute Basophils 0.0 Carbonic Acid HCO3/H2CO3 Ratio ABG pH ABG pCO2 ABG pO2 ABG HCO3 ABG O2 Saturation ABG Base Excess FiO2 Sodium 142.6 Potassium 4.2 Chloride 108 H Carbon Dioxide 26 Anion Gap 9 BUN 8 Creatinine 0.77 Est GFR ( Amer) > 60 Est GFR (Non-Af Amer) > 60 Glucose 74 L Calcium 8.7 Magnesium 2.0 Triglycerides 150 01/16/19 05:30 WBC RBC Hgb Hct MCV MCH MCHC RDW Plt Count Seg Neutrophils % Lymphocytes % Monocytes % Eosinophils % Basophils % Absolute Neutrophils Absolute Lymphocytes Absolute Monocytes Absolute Eosinophils Absolute Basophils Carbonic Acid 1.23 HCO3/H2CO3 Ratio 20:1 ABG pH 7.41 ABG pCO2 40.9 ABG pO2 79.1 L ABG HCO3 25.2 H ABG O2 Saturation 95.8 ABG Base Excess 0.5 FiO2 30% Sodium Potassium Chloride Carbon Dioxide Anion Gap BUN Creatinine Est GFR ( Amer) Est GFR (Non-Af Amer) Glucose Calcium Magnesium Triglycerides Impressions: Cervical Spine CT 01/14/19 19:11 IMPRESSION: 1. No acute intracranial hemorrhage. 2. No acute fracture or subluxation of the cervical spine. Head CT 01/14/19 19:11 IMPRESSION: 1. No acute intracranial hemorrhage. 2. No acute fracture or subluxation of the cervical spine. KUB X-Ray 01/14/19 23:49 IMPRESSION: NG tube tip in the stomach. Chest X-Ray 01/16/19 06:00 IMPRESSION: Clear lungs of adequate volume, and normal cardiac silhouette. Interval improvement. Assessment & Plan - Diagnosis (1) Acute respiratory failure with hypoxia Is this a current diagnosis for this admission?: Yes Plan: Continue current plans to maintain ventilation with adequate oxygenation and ventilation (2) Opiate overdose Qualifiers: Encounter type: initial encounter Injury intent: undetermined intent Qualified Code(s): T40.604A - Poisoning by unspecified narcotics, undetermined, initial encounter Is this a current diagnosis for this admission?: Yes Plan: Tachycardia and fever (3) Opiate withdrawal Is this a current diagnosis for this admission?: Yes Plan: Fentanyl - Time Total Critical Time (Minutes): 55
[2019-01-16] MEDS: AMPICILLIN SODIUM 500 MG in NORMAL SALINE 25 ML IV SCH ×3 (13:32→23:19)
[2019-01-16] MEDS: AMINO AC/PROTEIN HYDR/WHEY PRO 11 GM/45 ML PKT NG SCH ×2 (14:33→17:19)
--- NOTE | 2019-01-16 18:27 | PDOC PROGRESS REPORT ---
Subjective Progress Note for:: 01/16/19 Subjective:: The patient is resting comfortably sedated on the ventilator. He is still having tachycardia. This could possibly be related to drug withdrawal. Reason For Visit: AMS,PULMONARY EDEMA,OPIATE OD Physical Exam Vital Signs: Temp Pulse Resp BP Pulse Ox 100.2 F 115 H 16 107/53 L 98 01/16/19 10:01 01/16/19 10:00 01/16/19 10:01 01/16/19 10:00 01/16/19 10:01 Intake & Output 01/15/19 01/16/19 01/17/19 06:59 06:59 06:59 Intake Total 1303 2886 183 Output Total 970 3490 175 Balance 333 -604 8 Weight 76.7 kg 76.4 kg General appearance: PRESENT: no acute distress, well-developed, other - Sedated and resting comfortably Head exam: PRESENT: atraumatic, normocephalic Ear exam: PRESENT: normal external ear exam Mouth exam: PRESENT: other - Endotracheal tube in place Neck exam: ABSENT: carotid bruit, JVD, lymphadenopathy Respiratory exam: PRESENT: clear to auscultation wm - Anteriorly, symmetrical, unlabored. ABSENT: accessory muscle use, rales, rhonchi, tachypnea, wheezes Cardiovascular exam: PRESENT: RRR, +S1, +S2, tachycardia Pulses: PRESENT: normal radial pulses, normal dorsalis pedis pul GI/Abdominal exam: PRESENT: normal bowel sounds, soft. ABSENT: distended, tenderness Rectal exam: PRESENT: deferred Gentrourinary exam: PRESENT: indwelling catheter Extremities exam: ABSENT: joint swelling, pedal edema Musculoskeletal exam: PRESENT: normal inspection Neurological exam: PRESENT: other - Intubated and sedated. ABSENT: awake Psychiatric exam: PRESENT: other - Unable to assess. Intubated and sedated Skin exam: PRESENT: other - Multiple tattoos otherwise unremarkable Results Laboratory Results: 01/16/19 05:28 01/16/19 05:28 01/15/19 01/16/19 01/16/19 15:20 05:28 05:28 WBC 10.8 H RBC 4.39 Hgb 13.7 Hct 40.8 MCV 93 MCH 31.1 MCHC 33.5 RDW 13.8 Plt Count 197 Seg Neutrophils % 74.4 Lymphocytes % 16.2 Monocytes % 7.7 Eosinophils % 1.4 Basophils % 0.3 Absolute Neutrophils 8.0 Absolute Lymphocytes 1.7 Absolute Monocytes 0.8 Absolute Eosinophils 0.1 Absolute Basophils 0.0 Carbonic Acid HCO3/H2CO3 Ratio ABG pH ABG pCO2 ABG pO2 ABG HCO3 ABG O2 Saturation ABG Base Excess FiO2 Sodium 142.6 Potassium 4.2 Chloride 108 H Carbon Dioxide 26 Anion Gap 9 BUN 8 Creatinine 0.77 Est GFR ( Amer) > 60 Est GFR (Non-Af Amer) > 60 Glucose 74 L Calcium 8.7 Magnesium 2.0 Triglycerides 150 01/16/19 05:30 WBC RBC Hgb Hct MCV MCH MCHC RDW Plt Count Seg Neutrophils % Lymphocytes % Monocytes % Eosinophils % Basophils % Absolute Neutrophils Absolute Lymphocytes Absolute Monocytes Absolute Eosinophils Absolute Basophils Carbonic Acid 1.23 HCO3/H2CO3 Ratio 20:1 ABG pH 7.41 ABG pCO2 40.9 ABG pO2 79.1 L ABG HCO3 25.2 H ABG O2 Saturation 95.8 ABG Base Excess 0.5 FiO2 30% Sodium Potassium Chloride Carbon Dioxide Anion Gap BUN Creatinine Est GFR ( Amer) Est GFR (Non-Af Amer) Glucose Calcium Magnesium Triglycerides Impressions: Cervical Spine CT 01/14/19 19:11 IMPRESSION: 1. No acute intracranial hemorrhage. 2. No acute fracture or subluxation of the cervical spine. Head CT 01/14/19 19:11 IMPRESSION: 1. No acute intracranial hemorrhage. 2. No acute fracture or subluxation of the cervical spine. KUB X-Ray 01/14/19 23:49 IMPRESSION: NG tube tip in the stomach. Chest X-Ray 01/16/19 06:00 IMPRESSION: Clear lungs of adequate volume, and normal cardiac silhouette. Interval improvement. Assessment and Plan - Diagnosis (1) Acute respiratory failure with hypoxia Is this a current diagnosis for this admission?: Yes Plan: Most likely secondary to opiate overdose. Continue ventilator support follow-up chest x-ray and ABG. 01/15/2019-currently sedated. Has a low threshold for agitation. X-ray reviewed and large right upper lobe infiltrate. White blood cell count is improved but still elevated. Urine culture and sputum culture pending. I will start antibiotic therapy for possible aspiration as the patient was found down. Repeat chest x-ray tomorrow as well as repeat labs. 01/16/2019-chest x-ray appears improved. Still being treated for pneumonia. Because he has no specific history of lung disease and considering his age we will decrease his PEEP. He is tolerating the vent and her major concern is for withdrawal from narcotics. This would be contraindication to extubation at this time. We will still attempt weaning daily and try and extubate the patient as soon as is clinically feasible. (2) Fever Qualifiers: Fever type: due to other condition Qualified Code(s): R50.81 - Fever presenting with conditions classified elsewhere Is this a current diagnosis for this admission?: Yes Plan: No history suggesting aspiration, follow-up blood and urine culture 01/15/2019-urine and sputum cultures pending. Blood cultures ordered. Will initiate Unasyn for potential aspiration pneumonia in otherwise healthy patient with intact immune system. 01/16/2019-the sputum culture did grow group A beta-hemolytic strep. With antibiotic therapy his fevers have broken. Continue as needed Tylenol and antibiotic therapy. (3) Opiate overdose Qualifiers: Encounter type: initial encounter Injury intent: undetermined intent Qualified Code(s): T40.604A - Poisoning by unspecified narcotics, undetermined, initial encounter Is this a current diagnosis for this admission?: Yes Plan: Unclear route, no murmur. Mental health consult when appropriate 01/15/2019-the patient received Narcan in the emergency department. We will continue to monitor for withdrawal. Currently sedated. 01/16/2019-continue sedation. Pain medications available as well. I did start low-dose beta-nancy because of his tachycardia. We will need to monitor for hypotension. (4) Pulmonary edema Qualifiers: Chronicity: acute Qualified Code(s): J81.0 - Acute pulmonary edema Is this a current diagnosis for this admission?: Yes Plan: Likely secondary to opiate reversal. Continue ventilator support patient received 1 dose of Lasix, follow-up imaging 01/15/2019-as noted above. Will monitor intake and output. I will decrease the IV fluids to maintenance levels. 01/16/2019-IV fluids decreased to maintenance. Chest x-ray is improving. Confirmed pneumonia by culture. (5) Pneumonia Qualifiers: Pneumonia type: aspiration pneumonia Laterality: left Is this a current diagnosis for this admission?: Yes Plan: 01/15/2019-patient with right upper lobe infiltrate. Slightly worse. White blood cell count is improved however the patient was found down is at high risk of aspiration. Will start antibiotic therapy and monitor closely. Repeat labs and chest x-ray tomorrow. 01/16/2019-group A beta-hemolytic strep isolated from tracheal aspirations. I h ave change the antibiotic therapy to ampicillin as this is a preferred agent. At this time single agent therapy is appropriate. Continue to follow progress. - Time Time Spent with patient: 25-34 minutes Medications reviewed and adjusted accordingly: Yes
[2019-01-17] MEDS: IPRATROPIUM/ALBUTEROL 0.5-2.5 MG/3 ML AMPUL NEB SCH ×4 (00:10→23:52)
[2019-01-17] MEDS: LORAZEPAM INJ 2 MG/1 ML VIAL IV PRN ×3 (00:24→21:02)
[2019-01-17] MEDS: PROPOFOL 1,000 MG/100 ML INFUS..BTL IV PRN ×7 (01:23→23:29)
[2019-01-17] MEDS: NORMAL SALINE 1000 ML 1,000 ML IV PRN ×2 (01:34→12:00)
[2019-01-17 02:52] LABS: ABSOLUTE EOSINOPHILS # (AUTO) 0.2 10^3/uL (0.0-0.6); ABSOLUTE MONOCYTES (AUTO) 0.5 10^3/uL (0.1-1.4); ABSOLUTE NEUT (AUTO) 4.4 10^3/uL (1.7-8.2); BASOPHILS % (AUTO) 0.6 % (0-2); HEMATOCRIT 35.2 % (37.9-51.0); HEMOGLOBIN 11.9 g/dL (13.5-17.0); LYMPHOCYTES % (AUTO) 16.8 % (13-45); MEAN CORPUSCULAR HGB CONC 33.7 g/dL (32.0-36.0); MEAN CORPUSCULAR VOLUME 92 fl (80-97); MONOCYTES % (AUTO) 8.1 % (3-13); PLATELET COUNT 208 10^3/uL (150-450); RED BLOOD COUNT 3.83 10^6/uL (4.35-5.55); RED CELL DISTRIBUTION WIDTH 13.6 % (11.5-14.0); SEGMENTED NEUTROPHILS % (AUTO) 71.5 % (42-78); TOTAL CELLS COUNTED % (AUTO) 100 %; WHITE BLOOD COUNT 6.1 10^3/uL (4.0-10.5)
[2019-01-17 03:08] LABS: ANION GAP 7 (5-19); BLOOD UREA NITROGEN 7 mg/dL (7-20); CALCIUM 8.1 mg/dL (8.4-10.2); CARBON DIOXIDE 26 mmol/L (22-30); CHLORIDE 109 mmol/L (98-107); GLUCOSE 111 mg/dL (75-110); PHOSPHORUS 3.3 mg/dL (2.5-4.5); POTASSIUM 3.8 mmol/L (3.6-5.0); SODIUM 142.3 mmol/L (137-145)
[2019-01-17] MEDS: FENTANYL CITRATE INJ/PF 100 MCG/2 ML AMPUL IV PRN ×4 (04:04→23:56)
[2019-01-17 04:28] LABS: ARTERIAL BLOOD BASE EXCESS 0.7 mmol/L; ARTERIAL BLOOD H2CO3 1.26 mmol/L (1.05-1.35); ARTERIAL BLOOD HCO3 25.5 mmol/L (20-24); ARTERIAL BLOOD O2 SATURATION 98.4 % (94-98); ARTERIAL BLOOD PCO2 41.7 mmHg (35-45); ARTERIAL BLOOD PO2 119.9 mmHg (80-100); ARTERIAL BLOOD TOTAL CO2 26.8 mmol/L (23-27)
[2019-01-17 04:30] LABS: ARTERIAL BLOOD FIO2 30%
[2019-01-17] MEDS: HEPARIN SOD (PORCINE) 5,000 UNIT/ML 1 ML SYRINGE SUBCUT SCH ×3 (05:10→21:04)
[2019-01-17] MEDS: AMPICILLIN SODIUM 500 MG in NORMAL SALINE 25 ML IV SCH ×2 (05:10→12:12)
--- NOTE | 2019-01-17 08:40 | RADIOLOGY REPORT (SQ) ---
EXAM DESCRIPTION: CHEST SINGLE VIEW COMPLETED DATE/TIME: 01/17/2019 6:18 am REASON FOR STUDY: resp failure COMPARISON: AP chest 01/16/2019, 01/15/2019 01/14/2019 EXAM PARAMETERS: NUMBER OF VIEWS: One view. TECHNIQUE: Single frontal radiographic view of the chest acquired. RADIATION DOSE: NA LIMITATIONS: None. FINDINGS: LUNGS AND PLEURA: There is diffuse patchy bilateral perihilar airspace disease right great er than left worrisome for edema. No pleural effusions. No pneumothorax. MEDIASTINUM AND HILAR STRUCTURES: No masses. Contour normal. HEART AND VASCULAR STRUCTURES: Mild cardiomegaly BONES: No acute findings. HARDWARE: Endotracheal tube tip 5 cm above the bryn. Nasogastric tube tip and side port in the sto mach OTHER: No other significant finding. IMPRESSION: Perihilar pulmonary edema right greater than left Endotracheal tube, nasogastric tube in good positioning. Mild cardiomegaly TECHNICAL DOCUMENTATION: JOB ID: [id number] [employer]- All Rights Reserved Reading location - IP/workstation name: [email or web address]
[2019-01-17] MEDS: AMINO AC/PROTEIN HYDR/WHEY PRO 11 GM/45 ML PKT NG SCH ×3 (09:16→17:38)
[2019-01-17] MEDS: PANTOPRAZOLE SODIUM 40 MG VIAL IV SCH (09:16)
--- NOTE | 2019-01-17 12:19 | RADIOLOGY REPORT (SQ) ---
EXAM DESCRIPTION: CHEST SINGLE VIEW COMPLETED DATE/TIME: 01/17/2019 11:33 am REASON FOR STUDY: resp failure COMPARISON: Multiple since 2019 EXAM PARAMETERS: NUMBER OF VIEWS: One view. TECHNIQUE: Single frontal radiographic view of the chest acquired. RADIATION DOSE: NA LIMITATIONS: None. FINDINGS: LUNGS AND PLEURA: Diffuse asymmetric right-sided airspace disease, asymmetric edema versus pneumonia. This is similar compared to 01/17/2019. Left lung grossly clear. No pleural effusions. No pneumothorax. MEDIASTINUM AND HILAR STRUCTURES: No masses. Contour normal. HEART AND VASCULAR STRUCTURES: Heart normal in size. Normal vasculature. BONES: No acute findings. HARDWARE: Endotracheal tube tip midtrachea, 5 cm above the bryn. Nasogastric tube tip and side por t in the stomach. OTHER: No other significant finding. IMPRESSION: Persistent diffuse right-sided airspace disease, asymmetric edema versus pneumonia. Endotracheal tube, nasogastric tube in good positioning TECHNICAL DOCUMENTATION: JOB ID: [id number] [employer]- All Rights Reserved Reading location - IP/workstation name: [email or web address]
[2019-01-17] MEDS ORDERED: VANCOMYCIN HCL 0 MG in DEXTROSE 5%-WATER 250 ML IV NR (14:45)
--- NOTE | 2019-01-17 14:50 | PDOC PROGRESS REPORT ---
Subjective Progress Note for:: 01/17/19 Subjective:: Patient is still spiking temperature Reason For Visit: AMS,PULMONARY EDEMA,OPIATE OD Physical Exam Vital Signs: Temp Pulse Resp BP Pulse Ox 101.5 F H 98 16 129/85 H 96 01/17/19 12:00 01/17/19 12:00 01/17/19 12:00 01/17/19 12:00 01/17/19 12:00 Intake & Output 01/16/19 01/17/19 01/18/19 06:59 06:59 06:59 Intake Total 2886 2572 223 Output Total 3490 1295 5113 Balance -956 -196 -9086 Weight 76.4 kg 76.1 kg General appearance: PRESENT: no acute distress, well-developed Head exam: PRESENT: atraumatic, normocephalic Mouth exam: PRESENT: other - Endotracheal tube in place Respiratory exam: PRESENT: rhonchi - On the right, symmetrical. ABSENT: tachypnea, wheezes Cardiovascular exam: PRESENT: RRR, +S1, +S2 GI/Abdominal exam: PRESENT: normal bowel sounds, soft. ABSENT: distended, tenderness Rectal exam: PRESENT: deferred Gentrourinary exam: PRESENT: indwelling catheter Extremities exam: PRESENT: other - Trace edema in his hands. ABSENT: pedal edema Neurological exam: PRESENT: other - Sedated. ABSENT: awake Psychiatric exam: ABSENT: agitated Focused psych exam: ABSENT: restlessness Results Laboratory Results: 01/17/19 02:30 01/17/19 02:30 01/17/19 01/17/19 01/17/19 02:30 02:30 04:08 WBC 6.1 RBC 3.83 L Hgb 11.9 L Hct 35.2 L MCV 92 MCH 31.0 MCHC 33.7 RDW 13.6 Plt Count 208 Seg Neutrophils % 71.5 Lymphocytes % 16.8 Monocytes % 8.1 Eosinophils % 3.0 Basophils % 0.6 Absolute Neutrophils 4.4 Absolute Lymphocytes 1.0 Absolute Monocytes 0.5 Absolute Eosinophils 0.2 Absolute Basophils 0.0 Carbonic Acid 1.26 HCO3/H2CO3 Ratio 20:1 ABG pH 7.40 ABG pCO2 41.7 ABG pO2 119.9 H ABG HCO3 25.5 H ABG O2 Saturation 98.4 H ABG Base Excess 0.7 FiO2 30% Sodium 142.3 Potassium 3.8 Chloride 109 H Carbon Dioxide 26 Anion Gap 7 BUN 7 Creatinine 0.74 Est GFR ( Amer) > 60 Est GFR (Non-Af Amer) > 60 Glucose 111 H Calcium 8.1 L Phosphorus 3.3 Magnesium 2.0 01/15/19 00:45 Tracheal Aspirate Gram Stain - Final 01/15/19 00:45 Tracheal Aspirate Sputum Culture - Final Group A Beta Streptococcus Normal Evelina 01/15/19 00:45 Catheterized Urine Urine Culture - Final NO GROWTH 2 DAYS Impressions: Cervical Spine CT 01/14/19 19:11 IMPRESSION: 1. No acute intracranial hemorrhage. 2. No acute fracture or subluxation of the cervical spine. Head CT 01/14/19 19:11 IMPRESSION: 1. No acute intracranial hemorrhage. 2. No acute fracture or subluxation of the cervical spine. KUB X-Ray 01/14/19 23:49 IMPRESSION: NG tube tip in the stomach. Chest X-Ray 01/17/19 10:56 IMPRESSION: Persistent diffuse right-sided airspace disease, asymmetric edema versus pneumonia. Endotracheal tube, nasogastric tube in good positioning Assessment and Plan - Diagnosis (1) Acute respiratory failure with hypoxia Is this a current diagnosis for this admission?: Yes Plan: Most likely secondary to opiate overdose. Continue ventilator support follow-up chest x-ray and ABG. 01/15/2019-currently sedated. Has a low threshold for agitation. X-ray reviewed and large right upper lobe infiltrate. White blood cell count is improved but still elevated. Urine culture and sputum culture pending. I will start antibiotic therapy for possible aspiration as the patient was found down. Repeat chest x-ray tomorrow as well as repeat labs. 01/16/2019-chest x-ray appears improved. Still being treated for pneumonia. Because he has no specific history of lung disease and considering his age we will decrease his PEEP. He is tolerating the vent and her major concern is for withdrawal from narcotics. This would be contraindication to extubation at this time. We will still attempt weaning daily and try and extubate the patient as soon as is clinically feasible. 01/17/2019-the patient experienced emesis around the ET tube earlier today. I am going to broaden his antibiotic coverage with vancomycin and Zosyn to cover aspiration. (2) Fever Qualifiers: Fever type: due to other condition Qualified Code(s): R50.81 - Fever presenting with conditions classified elsewhere Is this a current diagnosis for this admission?: Yes Plan: No history suggesting aspiration, follow-up blood and urine culture 01/15/2019-urine and sputum cultures pending. Blood cultures ordered. Will initiate Unasyn for potential aspiration pneumonia in otherwise healthy patient with intact immune system. 01/16/2019-the sputum culture did grow group A beta-hemolytic strep. With antibiotic therapy his fevers have broken. Continue as needed Tylenol and antibiotic therapy. 01/17/2019-the patient was afebrile but spiked another temperature today. I have broaden the antibiotics as noted above. We will continue to monitor the temperature. If he aspirated that would certainly exacerbate fever. (3) Opiate overdose Qualifiers: Encounter type: initial encounter Injury intent: undetermined intent Qualified Code(s): T40.604A - Poisoning by unspecified narcotics, undetermined, initial encounter Is this a current diagnosis for this admission?: Yes Plan: Unclear route, no murmur. Mental health consult when appropriate 01/15/2019-the patient received Narcan in the emergency department. We will continue to monitor for withdrawal. Currently sedated. 01/16/2019-continue sedation. Pain medications available as well. I did start low-dose beta-nancy because of his tachycardia. We will need to monitor for hypotension. 01/17/2019-he has been fairly sedate. Medications have been effective. We will continue to wean. Unfortunately when we wean sedation he can be somewhat agit ated because of the ET tube discomfort. (4) Pulmonary edema Qualifiers: Chronicity: acute Qualified Code(s): J81.0 - Acute pulmonary edema Is this a current diagnosis for this admission?: Yes Plan: Likely secondary to opiate reversal. Continue ventilator support patient received 1 dose of Lasix, follow-up imaging 01/15/2019-as noted above. Will monitor intake and output. I will decrease the IV fluids to maintenance levels. 01/16/2019-IV fluids decreased to maintenance. Chest x-ray is improving. Confirmed pneumonia by culture. 01/17/2019-we have had significant negative fluid balance. X-ray still suggests versus infiltrate. Will continue current regimen and monitor intake and output. (5) Pneumonia Qualifiers: Pneumonia type: aspiration pneumonia Laterality: left Is this a current diagnosis for this admission?: Yes Plan: 01/15/2019-patient with right upper lobe infiltrate. Slightly worse. White blood cell count is improved however the patient was found down is at high risk of aspiration. Will start antibiotic therapy and monitor closely. Repeat labs and chest x-ray tomorrow. 01/16/2019-group A beta-hemolytic strep isolated from tracheal aspirations. I have change the antibiotic therapy to ampicillin as this is a preferred agent. At this time single agent therapy is appropriate. Continue to follow progress. 01/17/2019-as noted above the patient had emesis today. He does have a cuffed tube but there is still some risk for aspiration. I broaden the antibiotic coverage. X-ray appears stable. - Time Time Spent with patient: 15-24 minutes Medications reviewed and adjusted accordingly: Yes
--- NOTE | 2019-01-17 15:05 | PDOC PROGRESS REPORT ---
Subjective Progress Note for:: 01/17/19 Subjective:: patient intubated and sedated, failed to pass weaning trial Reason For Visit: AMS,PULMONARY EDEMA,OPIATE OD Physical Exam Vital Signs: Temp Pulse Resp BP Pulse Ox 101.1 F H 98 16 117/68 98 01/17/19 14:01 01/17/19 12:00 01/17/19 14:01 01/17/19 14:01 01/17/19 14:01 Intake & Output 01/16/19 01/17/19 01/18/19 06:59 06:59 06:59 Intake Total 2886 2572 223 Output Total 3490 7990 5164 Balance -649 -223 -0298 Weight 76.4 kg 76.1 kg General appearance: PRESENT: no acute distress, disheveled Head exam: PRESENT: atraumatic, normocephalic Eye exam: PRESENT: conjunctiva pink, EOMI, PERRLA. ABSENT: scleral icterus Ear exam: PRESENT: normal external ear exam Mouth exam: PRESENT: tongue midline, other - ET TUBE Neck exam: ABSENT: carotid bruit, JVD, lymphadenopathy, thyromegaly Respiratory exam: PRESENT: rhonchi, wheezes. ABSENT: clear to auscultation wm, rales Pulses: PRESENT: normal dorsalis pedis pul GI/Abdominal exam: PRESENT: normal bowel sounds, soft. ABSENT: distended, guarding, mass, organolmegaly, rebound, tenderness Rectal exam: PRESENT: deferred Extremities exam: PRESENT: full ROM. ABSENT: calf tenderness, clubbing, pedal edema Neurological exam: ABSENT: awake Results Laboratory Results: 01/17/19 02:30 01/17/19 02:30 01/17/19 01/17/19 01/17/19 02:30 02:30 04:08 WBC 6.1 RBC 3.83 L Hgb 11.9 L Hct 35.2 L MCV 92 MCH 31.0 MCHC 33.7 RDW 13.6 Plt Count 208 Seg Neutrophils % 71.5 Lymphocytes % 16.8 Monocytes % 8.1 Eosinophils % 3.0 Basophils % 0.6 Absolute Neutrophils 4.4 Absolute Lymphocytes 1.0 Absolute Monocytes 0.5 Absolute Eosinophils 0.2 Absolute Basophils 0.0 Carbonic Acid 1.26 HCO3/H2CO3 Ratio 20:1 ABG pH 7.40 ABG pCO2 41.7 ABG pO2 119.9 H ABG HCO3 25.5 H ABG O2 Saturation 98.4 H ABG Base Excess 0.7 FiO2 30% Sodium 142.3 Potassium 3.8 Chloride 109 H Carbon Dioxide 26 Anion Gap 7 BUN 7 Creatinine 0.74 Est GFR ( Amer) > 60 Est GFR (Non-Af Amer) > 60 Glucose 111 H Calcium 8.1 L Phosphorus 3.3 Magnesium 2.0 01/15/19 00:45 Tracheal Aspirate Gram Stain - Final 01/15/19 00:45 Tracheal Aspirate Sputum Culture - Final Group A Beta Streptococcus Normal Evelina 01/15/19 00:45 Catheterized Urine Urine Culture - Final NO GROWTH 2 DAYS Impressions: Cervical Spine CT 01/14/19 19:11 IMPRESSION: 1. No acute intracranial hemorrhage. 2. No acute fracture or subluxation of the cervical spine. Head CT 01/14/19 19:11 IMPRESSION: 1. No acute intracranial hemorrhage. 2. No acute fracture or subluxation of the cervical spine. KUB X-Ray 01/14/19 23:49 IMPRESSION: NG tube tip in the stomach. Chest X-Ray 01/17/19 10:56 IMPRESSION: Persistent diffuse right-sided airspace disease, asymmetric edema versus pneumonia. Endotracheal tube, nasogastric tube in good positioning Assessment & Plan - Diagnosis (1) Acute respiratory failure with hypoxia Is this a current diagnosis for this admission?: Yes Plan: continue mechanical ventilation at this time (2) Opiate overdose Qualifiers: Encounter type: initial encounter Injury intent: undetermined intent Qualified Code(s): T40.604A - Poisoning by unspecified narcotics, undetermined, initial encounter Is this a current diagnosis for this admission?: Yes Plan: possible withdrawal symptoms, continue supplemental fentanyl (3) Pneumonia Qualifiers: Pneumonia type: aspiration pneumonia Laterality: left Is this a current diagnosis for this admission?: Yes Plan: no positive cultures at this time, continue current antibiotic therapy - Time Total Critical Time (Minutes): 48 Inpatient Scribe Statement - . Entered by April Yuan, acting as scribe for .
[2019-01-17] MEDS: VANCOMYCIN HCL 1,000 MG in DEXTROSE 5%-WATER 250 ML IV SCH ×2 (16:34→21:04)
[2019-01-17] MEDS: PIPERACILLIN SODIUM/TAZOBACTAM 3.375 GM in NORMAL SALINE 100 ML IV SCH ×2 (17:38→23:26)
[2019-01-17] MEDS: ACETAMINOPHEN 325 MG TABLET NG PRN (22:53)
[2019-01-18] MEDS: NORMAL SALINE 1000 ML 1,000 ML IV PRN ×2 (02:23→12:00)
[2019-01-18] MEDS: PROPOFOL 1,000 MG/100 ML INFUS..BTL IV PRN ×4 (03:00→12:45)
[2019-01-18 04:02] LABS: ARTERIAL BLOOD BASE EXCESS -1.2 mmol/L; ARTERIAL BLOOD H2CO3 1.17 mmol/L (1.05-1.35); ARTERIAL BLOOD HCO3 23.4 mmol/L (20-24); ARTERIAL BLOOD O2 SATURATION 95.6 % (94-98); ARTERIAL BLOOD PO2 78.5 mmHg (80-100); ARTERIAL BLOOD TOTAL CO2 24.6 mmol/L (23-27)
[2019-01-18 04:05] LABS: ARTERIAL BLOOD FIO2 21%
[2019-01-18] MEDS: LORAZEPAM INJ 2 MG/1 ML VIAL IV PRN ×2 (04:49→10:43)
[2019-01-18 04:50] LABS: ABSOLUTE EOSINOPHILS # (AUTO) 0.3 10^3/uL (0.0-0.6); ABSOLUTE LYMPHOCYTES (AUTO) 1.4 10^3/uL (0.5-4.7); ABSOLUTE MONOCYTES (AUTO) 0.7 10^3/uL (0.1-1.4); ABSOLUTE NEUT (AUTO) 3.8 10^3/uL (1.7-8.2); BASOPHILS % (AUTO) 0.5 % (0-2); EOSINOPHILS % (AUTO) 4.4 % (0-6); HEMATOCRIT 39.5 % (37.9-51.0); HEMOGLOBIN 13.3 g/dL (13.5-17.0); LYMPHOCYTES % (AUTO) 22.7 % (13-45); MEAN CORPUSCULAR HEMOGLOBIN 31.1 pg (27.0-33.4); MEAN CORPUSCULAR HGB CONC 33.7 g/dL (32.0-36.0); MEAN CORPUSCULAR VOLUME 92 fl (80-97); MONOCYTES % (AUTO) 11.4 % (3-13); PLATELET COUNT 230 10^3/uL (150-450); RED BLOOD COUNT 4.27 10^6/uL (4.35-5.55); RED CELL DISTRIBUTION WIDTH 13.6 % (11.5-14.0); TOTAL CELLS COUNTED % (AUTO) 100 %; WHITE BLOOD COUNT 6.2 10^3/uL (4.0-10.5)
[2019-01-18] MEDS: PIPERACILLIN SODIUM/TAZOBACTAM 3.375 GM in NORMAL SALINE 100 ML IV SCH ×4 (05:04→23:42)
[2019-01-18] MEDS: HEPARIN SOD (PORCINE) 5,000 UNIT/ML 1 ML SYRINGE SUBCUT SCH ×3 (05:04→21:16)
[2019-01-18] MEDS: VANCOMYCIN HCL 1,000 MG in DEXTROSE 5%-WATER 250 ML IV SCH ×3 (05:05→21:16)
[2019-01-18 05:12] LABS: ANION GAP 9 (5-19); BLOOD UREA NITROGEN 5 mg/dL (7-20); CALCIUM 8.8 mg/dL (8.4-10.2); CARBON DIOXIDE 25 mmol/L (22-30); CHLORIDE 109 mmol/L (98-107); GLUCOSE 97 mg/dL (75-110); POTASSIUM 4.3 mmol/L (3.6-5.0); SODIUM 143.3 mmol/L (137-145)
--- NOTE | 2019-01-18 06:33 | RADIOLOGY REPORT (SQ) ---
EXAM DESCRIPTION: CHEST SINGLE VIEW COMPLETED DATE/TIME: 01/18/2019 6:14 am REASON FOR STUDY: abnormal cxr COMPARISON: 01/17/2019. FINDINGS: Single-view chest AP portable semi upright. Endotracheal and nasogastric tubes remain appropriate. Patchy perihilar infiltrates/edema, doubt change. Left lower lobe look slightly better aerated. No pneumothorax. TECHNICAL DOCUMENTATION: JOB ID: [id number] Reading location - IP/workstation name: [email or web address]
[2019-01-18] MEDS: IPRATROPIUM/ALBUTEROL 0.5-2.5 MG/3 ML AMPUL NEB SCH ×3 (07:25→23:51)
[2019-01-18] MEDS: AMINO AC/PROTEIN HYDR/WHEY PRO 11 GM/45 ML PKT NG SCH ×2 (10:12→13:21)
[2019-01-18] MEDS: FENTANYL CITRATE INJ/PF 100 MCG/2 ML AMPUL IV PRN (10:43)
--- NOTE | 2019-01-18 14:58 | PDOC PROGRESS REPORT ---
Subjective Progress Note for:: 01/18/19 Subjective:: NESHA BONILLA is a 28 year old male whose history is obtained by the record as he is intubated and sedated. Patient presents via EMS intubated and paralyzed after apparently having an overdose on opiates of some kind. Found slumping forward with agonal respirations and hypoxia in the 60s. He received 4 mg of IV Narcan becoming combative, agitated requiring intubation for airway protection. In the emergency room he is found to have leukocytosis, hypokalemia, pulmonary edema by imaging, hypoxic and hypercapnic respiratory failure. He is referred to the hospitalist for admission. Urine drug screen positive for benzodiazepine, opiates and cannabis. Reason For Visit: AMS,PULMONARY EDEMA,OPIATE OD Physical Exam Vital Signs: Temp Pulse Resp BP Pulse Ox 99.3 F 76 16 113/63 97 01/18/19 12:00 01/18/19 14:00 01/18/19 14:00 01/18/19 14:00 01/18/19 14:33 Intake & Output 01/17/19 01/18/19 01/19/19 06:59 06:59 06:59 Intake Total 2572 4082 1766 Output Total 3200 7624 1550 Balance -618 -8348 216 Weight 76.1 kg 74.8 kg General appearance: PRESENT: no acute distress, other Respiratory exam: PRESENT: clear to auscultation wm. ABSENT: rales, rhonchi, wheezes Cardiovascular exam: PRESENT: RRR. ABSENT: diastolic murmur, rubs, systolic murmur GI/Abdominal exam: PRESENT: normal bowel sounds, soft. ABSENT: distended, gua rding, mass, organolmegaly, rebound, tenderness Extremities exam: PRESENT: full ROM. ABSENT: calf tenderness, clubbing, pedal edema Neurological exam: PRESENT: other - intubate and sedated. Results Laboratory Results: 01/18/19 04:28 01/18/19 04:28 01/18/19 01/18/19 01/18/19 03:52 04:28 04:28 WBC 6.2 RBC 4.27 L Hgb 13.3 L Hct 39.5 MCV 92 MCH 31.1 MCHC 33.7 RDW 13.6 Plt Count 230 Seg Neutrophils % 61.0 Lymphocytes % 22.7 Monocytes % 11.4 Eosinophils % 4.4 Basophils % 0.5 Absolute Neutrophils 3.8 Absolute Lymphocytes 1.4 Absolute Monocytes 0.7 Absolute Eosinophils 0.3 Absolute Basophils 0.0 Carbonic Acid 1.17 HCO3/H2CO3 Ratio 20:1 ABG pH 7.40 ABG pCO2 39.0 ABG pO2 78.5 L ABG HCO3 23.4 ABG O2 Saturation 95.6 ABG Base Excess -1.2 FiO2 21% Sodium 143.3 Potassium 4.3 Chloride 109 H Carbon Dioxide 25 Anion Gap 9 BUN 5 L Creatinine 0.72 Est GFR ( Amer) > 60 Est GFR (Non-Af Amer) > 60 Glucose 97 Calcium 8.8 Magnesium 2.2 Impressions: Cervical Spine CT 01/14/19 19:11 IMPRESSION: 1. No acute intracranial hemorrhage. 2. No acute fracture or subluxation of the cervical spine. Head CT 01/14/19 19:11 IMPRESSION: 1. No acute intracranial hemorrhage. 2. No acute fracture or subluxation of the cervical spine. KUB X-Ray 01/14/19 23:49 IMPRESSION: NG tube tip in the stomach. Assessment and Plan - Diagnosis (1) Acute respiratory failure with hypoxia Is this a current diagnosis for this admission?: Yes Plan: Most likely secondary to opiate overdose. ABG within normal limits. Minimal ventilator support. Will extubate today. 01/18/2019: SBP 450178, T-max 99.3, pulse 80s, RR 1620, SPO2 97% FiO2 21, 10. ABG pH 7.40, PCO2 39.0, PCO2 78.5, FiO2 21%. WBC 6.2, hemoglobin 13.3, platelets 230, sodium 143.3, potassium 4.3, bicarb 25, creatinine 0.7, intubated. Day 3 of intubation. Started on ampicillin however switched to Vanco and Zosyn as he had episode of emesis on 01/17/2019. Switch back to penicillin no leukocytosis or worsening of respiratory symptoms. Tracheal aspirate positive for group A beta strep. (2) Opiate overdose Qualifiers: Encounter type: initial encounter Injury intent: undetermined intent Qualified Code(s): T40.604A - Poisoning by unspecified narcotics, undetermined, initial encounter Is this a current diagnosis for this admission?: Yes Plan: Day 3 of intubation. Will extubate today. Downgraded to IMCU. Monitor for withdrawal. (3) Pneumonia Qualifiers: Pneumonia type: aspiration pneumonia Laterality: left Is this a current diagnosis for this admission?: Yes Plan: Sputum culture positive for group A beta-hemolytic. Negative leukocytosis. Was switched to penicillin on 01/17/2019. 01/17/2019 patient had an emesis and was started on Vanco and Zosyn empirically. No leukocytosis, afebrile, SPO2 within normal limits. Day 3 of intubation. Started on ampicillin however switched to Vanco and Zosyn as he had episode of emesis on 01/17/2019. Switch back to penicillin no leukocytosis or worsening of respiratory symptoms. Tracheal aspirate positive for group A beta strep. (4) Pulmonary edema Qualifiers: Chronicity: acute Qualified Code(s): J81.0 - Acute pulmonary edema Is this a current diagnosis for this admission?: Yes Plan: SPO2 and ABG within normal limits. Chest clear to examination bilaterally. Monitor vitals. Supplemental oxygen as needed.
[2019-01-18] MEDS ORDERED: DEXTROSE 50%-WATER 25 GM/50 ML DISP.SYRIN IV PRN ×2 (15:43)
[2019-01-18] MEDS ORDERED: GLUCAGON,HUMAN RECOMB 1 MG INJ SUBCUT PRN (15:43)
[2019-01-18] MEDS ORDERED: DEXTROSE 40% GEL 15 GM TUBE PO PRN ×2 (15:43)
[2019-01-18] MEDS: ACETAMINOPHEN 325 MG TABLET NG PRN (21:40)
[2019-01-18 22:09] LABS: VANCOMYCIN,TROUGH 16.5 ug/mL (5.0-20.0)
[2019-01-19 04:26] LABS: ABSOLUTE BASOPHILS # (AUTO) 0.1 10^3/uL (0.0-0.2); ABSOLUTE EOSINOPHILS # (AUTO) 0.2 10^3/uL (0.0-0.6); ABSOLUTE LYMPHOCYTES (AUTO) 1.5 10^3/uL (0.5-4.7); ABSOLUTE MONOCYTES (AUTO) 0.8 10^3/uL (0.1-1.4); ABSOLUTE NEUT (AUTO) 6.7 10^3/uL (1.7-8.2); BASOPHILS % (AUTO) 0.7 % (0-2); EOSINOPHILS % (AUTO) 2.2 % (0-6); HEMOGLOBIN 13.1 g/dL (13.5-17.0); LYMPHOCYTES % (AUTO) 16.6 % (13-45); MEAN CORPUSCULAR HEMOGLOBIN 31.5 pg (27.0-33.4); MEAN CORPUSCULAR HGB CONC 34.5 g/dL (32.0-36.0); MEAN CORPUSCULAR VOLUME 91 fl (80-97); MONOCYTES % (AUTO) 8.4 % (3-13); PLATELET COUNT 282 10^3/uL (150-450); RED BLOOD COUNT 4.17 10^6/uL (4.35-5.55); RED CELL DISTRIBUTION WIDTH 13.4 % (11.5-14.0); SEGMENTED NEUTROPHILS % (AUTO) 72.1 % (42-78); TOTAL CELLS COUNTED % (AUTO) 100 %; WHITE BLOOD COUNT 9.3 10^3/uL (4.0-10.5)
[2019-01-19 04:30] LABS: ANION GAP 10 (5-19); BLOOD UREA NITROGEN 5 mg/dL (7-20); CALCIUM 8.7 mg/dL (8.4-10.2); CARBON DIOXIDE 22 mmol/L (22-30); CHLORIDE 112 mmol/L (98-107); GLUCOSE 95 mg/dL (75-110); POTASSIUM 4.2 mmol/L (3.6-5.0); SODIUM 143.5 mmol/L (137-145)
[2019-01-19] MEDS: VANCOMYCIN HCL 1,000 MG in DEXTROSE 5%-WATER 250 ML IV SCH ×3 (05:57→21:12)
[2019-01-19] MEDS: PIPERACILLIN SODIUM/TAZOBACTAM 3.375 GM in NORMAL SALINE 100 ML IV SCH ×4 (05:57→23:12)
[2019-01-19] MEDS: HEPARIN SOD (PORCINE) 5,000 UNIT/ML 1 ML SYRINGE SUBCUT SCH ×3 (05:58→21:10)
[2019-01-19] MEDS: NORMAL SALINE 1000 ML 1,000 ML IV PRN (05:58)
[2019-01-19] MEDS: IPRATROPIUM/ALBUTEROL 0.5-2.5 MG/3 ML AMPUL NEB SCH ×2 (07:43→15:26)
[2019-01-19] MEDS ORDERED: LORAZEPAM 1 MG TABLET PO PRN (08:03)
[2019-01-19] MEDS ORDERED: MORPHINE SULFATE 10 MG/ML INJ IV PRN ×2 (08:05→08:06)
--- NOTE | 2019-01-19 08:43 | RADIOLOGY REPORT (SQ) ---
EXAM DESCRIPTION: CHEST SINGLE VIEW COMPLETED DATE/TIME: 01/19/2019 6:16 am REASON FOR STUDY: resp failure COMPARISON: 01/18/2019 NUMBER OF VIEWS: One view. TECHNIQUE: Single frontal radiographic image of the chest acquired. LIMITATIONS: None. FINDINGS: LUNGS AND PLEURA: Stable appearance. No infiltrate. No pneumothorax. MEDIASTINUM AND HEART: Stable heart size and mediastinal structures. SUPPORT DEVICES: Interval removal of nasogastric and endotracheal tubes. BONY STRUCTURES: No acute findings. HARDWARE: None. OTHER: No other significant finding. IMPRESSION: Stable chest status post extubation. Reading location - IP/workstation name: [email or web address]
[2019-01-19] MEDS: FAMOTIDINE 20 MG TABLET PO SCH ×2 (10:51→21:12)
--- NOTE | 2019-01-19 13:55 | PDOC PROGRESS REPORT ---
Subjective Progress Note for:: 01/19/19 Subjective:: NESHA BONILLA is a 28 year old male whose history is obtained by the record as he is intubated and sedated. Patient presents via EMS intubated and paralyzed after apparently having an overdose on opiates of some kind. Found slumping forward with agonal respirations and hypoxia in the 60s. He received 4 mg of IV Narcan becoming combative, agitated requiring intubation for airway protection. In the emergency room he is found to have leukocytosis, hypokalemia, pulmonary edema by imaging, hypoxic and hypercapnic respiratory failure. He is referred to the hospitalist for admission. Urine drug screen positive for benzodiazepine, opiates and cannabis. 01/19/2019. Successfully extubated on 01/18/2019. Downgraded to [facility] [place] [facility] on 01/19/2019. Alert oriented x3, denies any chest pain, nausea, vomiting, diarrhea, constipation or any other symptoms. SBP 041290, T- max 99.5, pulse 70s, RR 1825, SPO2 98% FiO2 21% WBC 9.3, hemoglobin 13.1, padilla telets 282, sodium 143, potassium 4.2, bicarb 23, creatinine 1.68, Reason For Visit: AMS,PULMONARY EDEMA,OPIATE OD Physical Exam Vital Signs: Temp Pulse Resp BP Pulse Ox 99.5 F 98 18 122/81 98 01/19/19 11:14 01/19/19 11:14 01/19/19 11:14 01/19/19 11:14 01/19/19 11:14 Intake & Output 01/18/19 01/19/19 01/20/19 06:59 06:59 06:59 Intake Total 4081 3466 1433 Output Total 6196 6597 Balance -0355 -978 1433 Weight 74.8 kg 74.3 kg General appearance: PRESENT: no acute distress, well-developed, well-nourished Head exam: PRESENT: atraumatic, normocephalic Eye exam: PRESENT: conjunctiva pink, EOMI, PERRLA. ABSENT: scleral icterus Ear exam: PRESENT: normal external ear exam Mouth exam: PRESENT: moist, tongue midline Neck exam: ABSENT: carotid bruit, JVD, lymphadenopathy, thyromegaly Respiratory exam: PRESENT: clear to auscultation wm. ABSENT: rales, rhonchi, wheezes Cardiovascular exam: PRESENT: RRR. ABSENT: diastolic murmur, rubs, systolic murmur Pulses: PRESENT: normal dorsalis pedis pul Vascular exam: PRESENT: normal capillary refill GI/Abdominal exam: PRESENT: normal bowel sounds, soft. ABSENT: distended, guarding, mass, organolmegaly, rebound, tenderness Rectal exam: PRESENT: deferred Extremities exam: PRESENT: full ROM. ABSENT: calf tenderness, clubbing, pedal edema Neurological exam: PRESENT: alert, awake, oriented to person, oriented to place, oriented to time, oriented to situation, CN II-XII grossly intact. ABSENT: motor sensory deficit Psychiatric exam: PRESENT: appropriate affect, normal mood. ABSENT: homicidal ideation, suicidal ideation Skin exam: PRESENT: dry, intact, warm. ABSENT: cyanosis, rash Results Laboratory Results: 01/19/19 03:58 01/19/19 03:58 01/19/19 01/19/19 03:58 03:58 WBC 9.3 RBC 4.17 L Hgb 13.1 L Hct 38.0 MCV 91 MCH 31.5 MCHC 34.5 RDW 13.4 Plt Count 282 Seg Neutrophils % 72.1 Lymphocytes % 16.6 Monocytes % 8.4 Eosinophils % 2.2 Basophils % 0.7 Absolute Neutrophils 6.7 Absolute Lymphocytes 1.5 Absolute Monocytes 0.8 Absolute Eosinophils 0.2 Absolute Basophils 0.1 Sodium 143.5 Potassium 4.2 Chloride 112 H Carbon Dioxide 22 Anion Gap 10 BUN 5 L Creatinine 0.68 Est GFR ( Amer) > 60 Est GFR (Non-Af Amer) > 60 Glucose 95 Calcium 8.7 Magnesium 1.9 Impressions: Cervical Spine CT 01/14/19 19:11 IMPRESSION: 1. No acute intracranial hemorrhage. 2. No acute fracture or subluxation of the cervical spine. Head CT 01/14/19 19:11 IMPRESSION: 1. No acute intracranial hemorrhage. 2. No acute fracture or subluxation of the cervical spine. KUB X-Ray 01/14/19 23:49 IMPRESSION: NG tube tip in the stomach. Chest X-Ray 01/19/19 06:00 IMPRESSION: Stable chest status post extubation. Assessment and Plan - Diagnosis (1) Acute respiratory failure with hypoxia Is this a current diagnosis for this admission?: Yes Plan: Most likely secondary to opiate overdose. ABG within normal limits. Intubated for 3 days. Extubated on 01/18/2019. 01/19/2019: BP 428048, T-max 99.5, pulse 70s, RR 1825, SPO2 98% FiO2 21% 01/18/2019: SBP 737564, T-max 99.3, pulse 80s, RR 1620, SPO2 97% FiO2 21, 10. ABG pH 7.40, PCO2 39.0, PCO2 78.5, FiO2 21%. WBC 6.2, hemoglobin 13.3, platelets 230, sodium 143.3, potassium 4.3, bicarb 25, creatinine 0.7, intubated. Started on ampicillin however switched to Vanco and Zosyn as he had episode of emesis on 01/17/2019. Switch back to penicillin if no leukocytosis or worsening of respiratory symptoms. Tracheal aspirate positive for group A beta strep. (2) Opiate overdose Qualifiers: Encounter type: initial encounter Injury intent: undetermined intent Qualified Code(s): T40.604A - Poisoning by unspecified narcotics, undetermined, initial encounter Is this a current diagnosis for this admission?: Yes Plan: Was intubated for 3 days. Successfully extubated 01/06/2019. Downgraded to IMCU. Monitor for withdrawal. (3) Pneumonia Qualifiers: Pneumonia type: aspiration pneumonia Laterality: left Is this a current diagnosis for this admission?: Yes Plan: Sputum culture positive for group A beta-hemolytic. Negative leukocytosis. 01/17/2019 patient had an emesis and was started on Vanco and Zosyn empirically. No leukocytosis, afebrile, SPO2 within normal limits. Started on ampicillin however switched to Vanco and Zosyn as he had episode of emesis on 01/17/2019. Switch back to penicillin no leukocytosis or worsening of respiratory symptoms. Tracheal aspirate positive for group A beta strep. (4) Pulmonary edema Qualifiers: Chronicity: acute Qualified Code(s): J81.0 - Acute pulmonary edema Is this a current diagnosis for this admission?: Yes Plan: SPO2 and ABG within normal limits. Chest clear to examination bilaterally. Monitor vitals. Supplemental oxygen as needed.
[2019-01-19] MEDS ORDERED: FOLIC ACID/VITAMIN B COMP W-C CAPSULE PO SCH (16:00)
[2019-01-20] MEDS: IPRATROPIUM/ALBUTEROL 0.5-2.5 MG/3 ML AMPUL NEB SCH ×2 (00:37→08:12)
[2019-01-20] MEDS: HEPARIN SOD (PORCINE) 5,000 UNIT/ML 1 ML SYRINGE SUBCUT SCH (05:11)
[2019-01-20] MEDS: PIPERACILLIN SODIUM/TAZOBACTAM 3.375 GM in NORMAL SALINE 100 ML IV SCH (05:18)
[2019-01-20] MEDS: VANCOMYCIN HCL 1,000 MG in DEXTROSE 5%-WATER 250 ML IV SCH (05:53)
[2019-01-20 06:40] LABS: ABSOLUTE BASOPHILS # (AUTO) 0.1 10^3/uL (0.0-0.2); ABSOLUTE EOSINOPHILS # (AUTO) 0.3 10^3/uL (0.0-0.6); ABSOLUTE LYMPHOCYTES (AUTO) 1.5 10^3/uL (0.5-4.7); ABSOLUTE MONOCYTES (AUTO) 0.7 10^3/uL (0.1-1.4); ABSOLUTE NEUT (AUTO) 3.7 10^3/uL (1.7-8.2); BASOPHILS % (AUTO) 1.2 % (0-2); EOSINOPHILS % (AUTO) 5.2 % (0-6); HEMATOCRIT 40.5 % (37.9-51.0); HEMOGLOBIN 13.6 g/dL (13.5-17.0); LYMPHOCYTES % (AUTO) 23.7 % (13-45); MEAN CORPUSCULAR HGB CONC 33.7 g/dL (32.0-36.0); MEAN CORPUSCULAR VOLUME 92 fl (80-97); MONOCYTES % (AUTO) 10.7 % (3-13); PLATELET COUNT 273 10^3/uL (150-450); RED BLOOD COUNT 4.39 10^6/uL (4.35-5.55); RED CELL DISTRIBUTION WIDTH 13.1 % (11.5-14.0); SEGMENTED NEUTROPHILS % (AUTO) 59.2 % (42-78); TOTAL CELLS COUNTED % (AUTO) 100 %; WHITE BLOOD COUNT 6.3 10^3/uL (4.0-10.5)
[2019-01-20 07:09] LABS: ANION GAP 12 (5-19); BLOOD UREA NITROGEN 7 mg/dL (7-20); CALCIUM 9.4 mg/dL (8.4-10.2); CARBON DIOXIDE 24 mmol/L (22-30); CHLORIDE 109 mmol/L (98-107); GLUCOSE 100 mg/dL (75-110); POTASSIUM 4.2 mmol/L (3.6-5.0); SODIUM 144.5 mmol/L (137-145)
[2019-01-20 08:44] VITALS: BP 117/71
--- NOTE | 2019-01-20 10:41 | PDOC DISCHARGE SUMMARY ---
General - Admit/Disc Date/PCP Admission Date/Primary Care Provider: 01/14/19 20:59 Discharge Date: 01/20/19 - Discharge Diagnosis (1) Acute respiratory failure with hypoxia Is this a current diagnosis for this admission?: Yes Summary: Most likely secondary to opiate overdose. ABG within normal limits. Intubated for 3 days. Extubated on 01/18/2019. 01/19/2019: BP 331391, T-max 99.5, pulse 70s, RR 1825, SPO2 98% FiO2 21% 01/18/2019: SBP 787955, T-max 99.3, pulse 80s, RR 1620, SPO2 97% FiO2 21, 10. ABG pH 7.40, PCO2 39.0, PCO2 78.5, FiO2 21%. WBC 6.2, hemoglobin 13.3, platelets 230, sodium 143.3, potassium 4.3, bicarb 25, creatinine 0.7, intubated. Started on ampicillin however switched to Vanco and Zosyn as he had episode of emesis on 01/17/2019. Switch back to penicillin if no leukocytosis or worsening of respiratory symptoms. Tracheal aspirate positive for group A beta strep. 01/20/2019-patient is comfortable in the bed today pulse ox is 98% on room air. WBC count is 6.3. Afebrile. Acute respiratory failure with hypoxia status post intubation and extubation resolved. Patient is going home on levofloxacin 5 mg p.o. daily for 10 days. Patient was advised to follow-up with primary care physician in 3 to 5 days. (2) Opiate overdose Is this a current diagnosis for this admission?: Yes Summary: Was intubated for 3 days. Successfully extubated 01/06/2019. Downgraded to IMCU. Monitor for withdrawal. 01/20/2019-patient was admitted with opioid overdose status post intubation and extubation he was in the ICU for 3 days and transferred to [facility] yesterday he is stable enough to go home today. (3) Pneumonia Is this a current diagnosis for this admission?: Yes Summary: Sputum culture positive for group A beta-hemolytic. Negative leukocytosis. 01/17/2019 patient had an emesis and was started on Vanco and Zosyn empirically. No leukocytosis, afebrile, SPO2 within normal limits. Started on ampicillin however switched to Vanco and Zosyn as he had episode of emesis on 01/17/2019. Switch back to penicillin no leukocytosis or worsening of respiratory symptoms. Tracheal aspirate positive for group A beta strep. 01/20/2019-sputum culture was positive group A beta-hemolytic strep. He was rosana tip with vancomycin and Zosyn. Because of the concerns about aspiration. WBC count is normal and patient is afebrile does not have any respiratory symptoms today. Patient is going home on levofloxacin 500 mg p.o. daily for 10 days. Pneumonia most likely healthcare associated, gram-positive organisms responsible. (4) Pulmonary edema Is this a current diagnosis for this admission?: Yes Summary: SPO2 and ABG within normal limits. Chest clear to examination bilaterally. Monitor vitals. Supplemental oxygen as needed. 01/20/2019-pulse ox today is 98% on room air on examination chest bilateral entry was good no wheezing no crepitations. Pulmonary edema may be secondary to aspiration resolved. - Additional Information Resuscitation Status: Full Code Discharge Diet: As Tolerated, Regular Discharge Activity: Activity As Tolerated Prescriptions: Levofloxacin [Levaquin 500 mg Tablet] 500 mg PO DAILY #10 tablet Home Medications: Levofloxacin [Levaquin 500 mg Tablet] 500 mg PO DAILY #10 tablet 01/20/19 History of Present Illness History of Present Illness: NESHA BONILLA is a 28 year old male 28 year old male whose history is obtained by the record as he is intubated and sedated. Patient presents via EMS intubated and paralyzed after apparently having an overdose on opiates of some kind. Found slumping forward with agonal respirations and hypoxia in the 60s. He received 4 mg of IV Narcan becoming combative, agitated requiring intubation for airway protection. In the emergency room he is found to have leukocytosis, hypokalemia, pulmonary edema by imaging, hypoxic and hypercapnic respiratory failure. He is referred to the hospitalist for admission. Urine drug screen positive for benzodiazepine, opiates and cannabis. Hospital Course Hospital Course: 28-year-old male admitted with opioid overdose status post intubation and extubated after 3 days he was in the ICU and transferred to [facility] yesterday pulse ox is 98% on room air he was treated for presumptive aspiration pneumonia with IV vancomycin and Zosyn he is going home on levofloxacin 5 mg p.o. daily. The sputum culture came back positive for group A beta Streptococcus. Physical Exam Vital Signs: Temp Pulse Resp BP Pulse Ox 99.2 F 82 14 117/71 93 01/20/19 08:41 01/20/19 08:41 01/20/19 08:41 01/20/19 08:41 01/20/19 08:41 Intake & Output 01/19/19 01/20/19 01/21/19 06:59 06:59 06:59 Intake Total 3466 2620 250 Output Total 3760 Balance -294 2620 250 Weight 74.3 kg 71.3 kg General appearance: PRESENT: no acute distress Head exam: PRESENT: atraumatic Eye exam: PRESENT: PERRLA Mouth exam: PRESENT: moist, tongue midline Teeth exam: PRESENT: poor dentation Neck exam: ABSENT: carotid bruit, JVD, lymphadenopathy, thyromegaly Respiratory exam: PRESENT: clear to auscultation wm. ABSENT: rales, rhonchi, wheezes Cardiovascular exam: PRESENT: RRR. ABSENT: diastolic murmur, rubs, systolic murmur GI/Abdominal exam: PRESENT: normal bowel sounds, soft. ABSENT: distended, g uarding, mass, organolmegaly, rebound, tenderness Rectal exam: PRESENT: deferred Extremities exam: PRESENT: full ROM. ABSENT: calf tenderness, clubbing, pedal edema Neurological exam: PRESENT: alert, awake, oriented to person, oriented to place, oriented to time, oriented to situation, CN II-XII grossly intact. ABSENT: mo tor sensory deficit Psychiatric exam: PRESENT: appropriate affect, normal mood. ABSENT: homicidal ideation, suicidal ideation Skin exam: PRESENT: dry, intact, warm. ABSENT: cyanosis, rash Results Laboratory Results: 01/20/19 05:24 01/20/19 05:24 01/20/19 01/20/19 05:24 05:24 WBC 6.3 RBC 4.39 Hgb 13.6 Hct 40.5 MCV 92 MCH 31.0 MCHC 33.7 RDW 13.1 Plt Count 273 Seg Neutrophils % 59.2 Lymphocytes % 23.7 Monocytes % 10.7 Eosinophils % 5.2 Basophils % 1.2 Absolute Neutrophils 3.7 Absolute Lymphocytes 1.5 Absolute Monocytes 0.7 Absolute Eosinophils 0.3 Absolute Basophils 0.1 Sodium 144.5 Potassium 4.2 Chloride 109 H Carbon Dioxide 24 Anion Gap 12 BUN 7 Creatinine 0.72 Est GFR ( Amer) > 60 Est GFR (Non-Af Amer) > 60 Glucose 100 Calcium 9.4 Magnesium 2.2 Impressions: Cervical Spine CT 01/14/19 19:11 IMPRESSION: 1. No acute intracranial hemorrhage. 2. No acute fracture or subluxation of the cervical spine. Head CT 01/14/19 19:11 IMPRESSION: 1. No acute intracranial hemorrhage. 2. No acute fracture or subluxation of the cervical spine. KUB X-Ray 01/14/19 23:49 IMPRESSION: NG tube tip in the stomach. Chest X-Ray 01/19/19 06:00 IMPRESSION: Stable chest status post extubation. Qualifiers - * PATIENT BEING DISCHARGED WITH ANY OF THE FOLLOWING DIAGNOSIS: No VTE patient discharged on overlapping Therapy?: No Acute Heart Failure Is this a Heart Failure Patient?: No Plan Discharge Plan: Patient is going home today.
--- NOTE | 2019-01-20 12:06 | PDOC PROGRESS REPORT ---
Subjective Progress Note for:: 01/19/19 Subjective:: Extubated and doing well Reason For Visit: AMS,PULMONARY EDEMA,OPIATE OD Physical Exam Vital Signs: Temp Pulse Resp BP Pulse Ox 99.2 F 82 14 117/71 93 01/20/19 08:41 01/20/19 08:41 01/20/19 08:41 01/20/19 08:41 01/20/19 08:41 Intake & Output 01/19/19 01/20/19 01/21/19 06:59 06:59 06:59 Intake Total 3466 2620 250 Output Total 3760 Balance -294 2620 250 Weight 74.3 kg 71.3 kg General appearance: PRESENT: no acute distress, well-developed, well-nourished Head exam: PRESENT: atraumatic, normocephalic Eye exam: PRESENT: conjunctiva pink, EOMI, PERRLA. ABSENT: scleral icterus Ear exam: PRESENT: normal external ear exam Mouth exam: PRESENT: moist, tongue midline Neck exam: ABSENT: carotid bruit, JVD, lymphadenopathy, thyromegaly Respiratory exam: PRESENT: clear to auscultation wm. ABSENT: rales, rhonchi, wheezes Cardiovascular exam: PRESENT: RRR. ABSENT: diastolic murmur, rubs, systolic murmur Pulses: PRESENT: normal dorsalis pedis pul Vascular exam: PRESENT: normal capillary refill GI/Abdominal exam: PRESENT: normal bowel sounds, soft. ABSENT: distended, guarding, mass, organolmegaly, rebound, tenderness Rectal exam: PRESENT: deferred Extremities exam: PRESENT: full ROM. ABSENT: calf tenderness, clubbing, pedal edema Neurological exam: PRESENT: alert, awake, oriented to person, oriented to place, oriented to time, oriented to situation, CN II-XII grossly intact. ABSENT: motor sensory deficit Psychiatric exam: PRESENT: appropriate affect, normal mood. ABSENT: homicidal ideation, suicidal ideation Skin exam: PRESENT: dry, intact, warm. ABSENT: cyanosis, rash Results Laboratory Results: 01/20/19 05:24 01/20/19 05:24 01/20/19 01/20/19 05:24 05:24 WBC 6.3 RBC 4.39 Hgb 13.6 Hct 40.5 MCV 92 MCH 31.0 MCHC 33.7 RDW 13.1 Plt Count 273 Seg Neutrophils % 59.2 Lymphocytes % 23.7 Monocytes % 10.7 Eosinophils % 5.2 Basophils % 1.2 Absolute Neutrophils 3.7 Absolute Lymphocytes 1.5 Absolute Monocytes 0.7 Absolute Eosinophils 0.3 Absolute Basophils 0.1 Sodium 144.5 Potassium 4.2 Chloride 109 H Carbon Dioxide 24 Anion Gap 12 BUN 7 Creatinine 0.72 Est GFR ( Amer) > 60 Est GFR (Non-Af Amer) > 60 Glucose 100 Calcium 9.4 Magnesium 2.2 Impressions: Cervical Spine CT 01/14/19 19:11 IMPRESSION: 1. No acute intracranial hemorrhage. 2. No acute fracture or subluxation of the cervical spine. Head CT 01/14/19 19:11 IMPRESSION: 1. No acute intracranial hemorrhage. 2. No acute fracture or subluxation of the cervical spine. KUB X-Ray 01/14/19 23:49 IMPRESSION: NG tube tip in the stomach. Chest X-Ray 01/19/19 06:00 IMPRESSION: Stable chest status post extubation. Assessment & Plan - Diagnosis (1) Acute respiratory failure with hypoxia Is this a current diagnosis for this admission?: Yes Plan: patient extubated and doing well at this time. (2) Opiate overdose Qualifiers: Encounter type: initial encounter Injury intent: undetermined intent Qualified Code(s): T40.604A - Poisoning by unspecified narcotics, undetermined, initial encounter Is this a current diagnosis for this admission?: Yes Plan: continue to observe for signs of withdrawal (3) Pneumonia Qualifiers: Pneumonia type: aspiration pneumonia Laterality: left Is this a current diagnosis for this admission?: Yes Plan: no positive cultures at this time, continue current antibiotic therapy - Time Total Critical Time (Minutes): 45 Inpatient Scribe Statement - . Entered by April Yuan, acting as scribe for .
== END 2019-01-20 09:38 | disposition home or self-care (01) | DRG 917 ==
LOC: EDBD → ER 18:57 → EH 20:59 → ICU 23:10 → 3N 01-19 11:42
PROVIDERS: ADMIT Internal Medicine; ATTEND Internal Medicine
PROC: 5A1945Z Respiratory Ventilation, 24-96 Consecutive Hours (ICD-10-PCS; principal; 2019-01-14)
DX: T40.601A Poisoning by unspecified narcotics, accidental (unintentional), initial encounter (principal); J96.01 Acute respiratory failure with hypoxia; J69.0 Pneumonitis due to inhalation of food and vomit; J96.02 Acute respiratory failure with hypercapnia; B95.0 Streptococcus, group A, as the cause of diseases classified elsewhere; E87.6 Hypokalemia; T50.7X5A Adverse effect of analeptics and opioid receptor antagonists, initial encounter; Y92.008 Other place in unspecified non-institutional (private) residence as the place of occurrence of the external cause; D72.829 Elevated white blood cell count, unspecified; Z78.1 Physical restraint status; R82.5 Elevated urine levels of drugs, medicaments and biological substances
CPT/HCPCS: 36415; 51702; 70450; 71045; 72125; 74018; 80048; 80053; 80202; 80307; 81001; 82803; 82962; 83036; 83735; 84100; 84478; 85025; 87040; 87070; 87077; 87086; 87205; 93005; 93010; 94002; 94003; 94640; 96361; 96374; 96375; 96376; 99291; B4155; J0290; J0295; J1170; J1644; J1940; J2060; J2543; J2704; J3010; J3370; J3480; J7030; J7050; J7060; J7620; S0164